=== PATIENT | male | born 1955 | race Caucasian/White ===

== ENCOUNTER 2019-11-06 12:49 | Inpatient (IN) | payer OTHER ==
--- NOTE | 2019-11-06 13:00 | ED ---
Respiratory - HPI Summary HPI Summary: This patient is a 64 year old male brought in by EMS presenting to [facility] with a chief complaint of hypoxia. He states he was being seen at a primary care for a general illness that started three days ago, that includes sore throat, fever, cough, diarrhea, dizziness, body aches, and laryngitis. He states there is gurgling in his lungs when he coughs/breathes, which he states is painful. He reports numbness/tingling in his right hand. He states less appetite. At his PCP , they noticed his SPO2 was 75% saturation. He was 80% on 2 L of oxygen at the office. The patient has a Hx of GERD. Medications reviewed, allergies noted. - History of Current Complaint Stated Complaint: GENERAL ILLNESS PER EMS Hx Obtained From: Patient Onset/Duration: Lasting Days Character: Dyspnea at Rest Associated Signs and Symptoms: SOB - Allergy/Home Medications Allergies/Adverse Reactions: Allergies Allergy/AdvReac Type Severity Reaction Status Date / Time bee venom protein (honey bee) Allergy Anaphylatic Verified 07/25/19 11:59 Shock celecoxib [From Celebrex] Allergy Unknown Verified 07/25/19 11:59 Reaction Details fenoprofen [From Nalfon] Allergy Unknown Verified 07/25/19 11:59 Reaction Details Home Medications: Home Medications Magic Mouth Was-KENNETH/MAAL/LIDO* 5 ml SWISH SPIT QID 11/06/19 [History Confirmed 11/06/19] PMH/Surg Hx/FS Hx/Imm Hx Endocrine/Hematology History: Denies: Hx Diabetes Cardiovascular History: Denies: Hx Hypertension, Hx Pacemaker/ICD History: Denies: Hx Renal Disease Sensory History: Denies: Hx Hearing Aid Psychiatric History: Denies: Hx Panic Disorder - Surgical History Surgery Procedure, Year, and Place: TONSILS AGE 6. CYSTS REMOVED FROM BACK AT DIFFERENT TIMES. DEVIATED SEPTUM REPAIRED 2011 - Immunization History Date of Tetanus Vaccine: Unk Date of Influenza Vaccine: Fall 2014 - Social History Alcohol Use: Rare Substance Use Type: Reports: None Smoking Status (MU): Never Smoked Tobacco Review of Systems Positive: Fever, Other - Body aches Positive: Sore Throat, Other - Laryngitis Positive: Cough, Other - Hypoxia Positive: Diarrhea Neurological/Mental Status: Other - Dizziness All Other Systems Reviewed And Are Negative: Yes Physical Exam - Summary Physical Exam Summary: Constitutional: Well-developed, Well-nourished, Alert. (-) Distressed Skin: Warm, Dry HENT: Normocephalic; Atraumatic Eyes: Conjunctiva normal Neck: Musculoskeletal ROM normal neck. (-) JVD, (-) Stridor, (-) Tracheal deviation Cardio: Rhythm regular, rate normal, Heart sounds normal; Intact distal pulses; The pedal pulses are 2+ and symmetric. Radial pulses are 2+ and symmetric. (-) Murmur Pulmonary/Chest wall: Wet sounding cough, decreased respiratory effort with crackles in the left lung field. 2+ pitting edema bilaterally. Abd: Soft, (-) tenderness, (-) Distension, (-) Guarding, (-) Rebound Musculoskeletal: (-) Edema Lymph: (-) Cervical adenopathy Neuro: Alert, Oriented x3 Psych: Mood and affect Normal Triage Information Reviewed: Yes Vital Signs Reviewed: Yes Procedures - Procedure Summary Procedure Summary: Patient was intubated. 20 mg of etomidate and 100 mg rocuronium was used. Patient was pre-oxygenated with oxygen mask and vapo-therm. 7.5 orotracheal tube was used, 23 at the lips. Glidescope was used, no complications during the procedure. - Sedation Patient Received Moderate/Deep Sedation with Procedure: No - Intubation Time of Intubation: 15:56 Intubation Method: orotracheal Tube Size (cm): 7.5 Breath Sounds after Intubation: equal Intubation Complications: no complications Post Intubation Xray: Yes Diagnostics - Laboratory Result Diagrams: 11/06/19 13:12 11/06/19 13:30 Lab Statement: Any lab studies that have been ordered have been reviewed, and results considered in the medical decision making process. - Radiology CXR Radiology Interpretation Completed By: Radiologist Summary of Radiographic Findings: IMPRESSION: RIGHT BASILAR INFILTRATE AND SMALL PLEURAL EFFUSION SUGGESTIVE OF PNEUMONIA. RECOMMEND FOLLOW-UP CHEST X- RAYS TO RESOLUTION. THIS REPORT WAS REVIEWED BY ED PHYSICIAN. POST-INTUBATION CXR Radiology Interpretation Completed By: Radiologist Summary of Radiographic Findings: FINDINGS: LINES AND TUBES: There has been interval placement of an endotracheal tube with the tip. overlying the trachea between the clavicles and the dina. IMPRESSION: LINES AND TUBES ABOVE. BIBASILAR ATELECTASIS VERSUS CONSOLIDATION WITH A. SMALL RIGHT PLEURAL EFFUSION. THIS REPORT WAS REVIEWED BY ED PHYSICIAN. - CT CT CHEST CT Interpretation Completed By: Radiologist Summary of CT Findings: CT CHEST IMPRESSION: Bilateral consolidation consistent with lobar pneumonia worse on the right. than on the left. THIS REPORT WAS REVIEWED BY ED PHYSICIAN. CT SOFT TISSUE NECK CT Interpretation Completed By: Radiologist Summary of CT Findings: SOFT TISSUE NECK CT IMPRESSION: No evidence of epiglottitis. THIS REPORT WAS REVIEWED BY ED PHYSICIAN. - EKG 1313 Cardiac Rate: Tachycardia - rate of 101 BPM EKG Rhythm: Sinus Tachycardia Summary of EKG Findings: EKG showed sinus tachycardia with rate of 101 BPM, EKG is difficult to interpret due to baseline wander. ED physician has reviewed and interpreted this EKG. Re-Evaluation - Re-Evaluation First Eval Re-Evaluation Time: 14:02 Comment: Patient's o2 saturation is in 90s while on vapotherm and oxygen mask. Second Eval Re-Evaluation Time: 15:31 Comment: Patient experienced desaturation of o2 to 60s. Repositioned vapotherm, patient was encouraged to breath in treatment. He improved to 90s. Third Eval Re-Evaluation Time: 15:44 Comment: Patient's o2 saturation slipped down to 80s, patient will be intubated. Disposition - Course Course Of Treatment: Patient is here with respiratory distress secondary to pneumonia. Patient is found be febrile and hypoxic at his primary care doctor' s office. Upon arrival here, patient was satting roughly 80% on 6 L nasal cannula. Patient was placed on Vapotherm anoxemia mask with little improvement in his saturation. Patient then had an albuterol treatment which helped his cough and increase his oxygen saturation to the mid 90s. Patient had an x-ray which showed a right middle lobe pneumonia. Patient is given Rocephin and azithromycin per the sepsis order set for community-acquired pneumonia. Patient was sent to receive a CT scan to rule out epiglottitis. When patient returned from CT scan, he was satting the 60s. Patient is placed back on Vapotherm and received another treatment. Patient only satted in the made 80s and the decision was made to intubate patient. Patient was successfully intubated and moved to the ICU. - Diagnoses Provider Diagnoses: Respiratory distress, RLL pneumonia, Hypoxia - Physician Notifications Discussed Care Of Patient With: Thom Owen MD Time Discussed With Above Provider: 14:31 Instructed by Provider To: Other - Patient's case was discussed with Dr. Peterson and Dr. Owen. Dr. Owen accepts for admission. CT chest and CT of neck, soft tissue to be obtained as well. - Critical Care Time Critical Care Time: 75-104 min - 80 minutes CCT Discharge ED - Sign-Out/Discharge Documenting (check all that apply): Patient Departure - admit - Discharge Plan Condition: Fair Disposition: ADMITTED TO [facility] - Billing Disposition and Condition Condition: FAIR Disposition: Admitted to [facility] - Attestation Statements Document Initiated by Ronniibe: Yes Documenting Scribe: Thom Hemphill Provider For Whom Denice is Documenting (Include Credential): Prasanna Hughes MD Scribe Attestation: Thom Henning, scribed for Prasanna Hughes MD on 11/06/19 at 1829. Scribe Documentation Reviewed: Yes Provider Attestation: The documentation as recorded by the ronniibjeane, Thom Hemphill accurately reflects the service I personally performed and the decisions made by Prasanna head MD Status of Scribe Document: Viewed
[2019-11-06] MEDS ORDERED: cefTRIAXone(*) 1 GM in NS 0.9% 50 ML* 50 ML IVPB ONE (13:05)
[2019-11-06] MEDS ORDERED: Azithromycin 500 mg/250 ml NS 500 MG/250 ML BAG IVPB ONE (13:05)
[2019-11-06] MEDS ORDERED: Albuterol 2.5 MG/3 ML NEB.SOL* (0.083%) INH ONE ×2 (13:13→15:23)
[2019-11-06] MEDS ORDERED: NS 0.9% 1000 ML** 1,000 ML IV ONE (13:25)
[2019-11-06 13:52] LABS: Hematocrit 40 % (42-52); Hemoglobin 13.5 g/dL (14.0-18.0); Mean Corpuscular HGB Conc 34 g/dL (31-36); Mean Corpuscular Hemoglobin 31 pg (27-31); Mean Corpuscular Volume 92 fL (80-94); Mean Platelet Volume 7.8 fL (7.4-10.4); Platelet Count 136 10^3/uL (150-450); Red Blood Count 4.33 10^6 /uL (4.18-5.48); Red Cell Distribution Width 14 % (10-15); White Blood Count 9.5 10^3/uL (3.5-10.8)
[2019-11-06 14:15] LABS: ABS Monocytes 0.6 10^3/ul (0-0.8); ABS Neutrophils 7.9 10^3/ul (1.5-7.7); Lymphocyte % 10.1 %
[2019-11-06 14:19] LABS: Albumin 4.1 g/dL (3.2-5.2); Albumin/Globulin Ratio 1.3 (1-3); BUN/Creatinine Ratio 24.2 (8-20); Calcium 8.7 mg/dL (8.6-10.3); EGFR African American 68.7 (>60); EGFR Non-African American 56.8 (>60); Globulin 3.1 g/dL (2-4); Potassium 3.3 mmol/L (3.5-5.0); Total Protein 7.2 g/dL (6.4-8.9)
[2019-11-06] MEDS ORDERED: Iodixanol* (CONTRAST) 320 MG/ML 100 ML SDV IV ONE (14:37)
[2019-11-06] MEDS ORDERED: Albuterol/Ipratropium NEB.SOL* Albuterol 2.5 MG/Ipratropium 0.5 MG 3 ML INH PRN (15:34)
[2019-11-06] MEDS ORDERED: Etomidate* 2 MG/ML 10 ML VIAL IV ONE (15:46)
[2019-11-06] MEDS ORDERED: Rocuronium* 10 MG/ML VIAL IV ONE (15:46)
[2019-11-06] MEDS ORDERED: Propofol* 100 ML IV ONE (15:54)
[2019-11-06 16:44] LABS: Influenza A Molecular POSITIVE (Negative)
[2019-11-06] MEDS ORDERED: Vancomycin per Pharmacy* NOTE FOLLOW UP SCH (17:00)
[2019-11-06] MEDS ORDERED: Vancomycin(*) 1,250 MG in NS 0.9% 250 ML* 250 ML IVPB ONE (17:00)
[2019-11-06] MEDS ORDERED: Acetaminophen ADULT LIQ* 650 MG/20.3 ML UDC NG TUBE ONE (17:10)
[2019-11-06 17:20] LABS: Urine Appearance Cloudy; Urine Bilirubin Negative (Negative); Urine Blood 2+ (Negative); Urine Color Yellow; Urine Glucose Negative (Negative); Urine Ketones Trace (Negative); Urine Nitrite Negative (Negative); Urine Protein 1+(30 mg/dL) (Negative); Urine Specific Gravity 1.025 (1.010-1.030); Urine Urobilinogen Negative (Negative)
[2019-11-06 17:22] LABS: Urine Bacteria Absent (Absent); Urine Red Blood Cell Trace(0-2/hpf) (Absent); Urine White Blood Cell Trace(0-5/hpf) (Absent)
[2019-11-06] MEDS ORDERED: LACTATED RINGERS IV SCH (18:15)
[2019-11-06] MEDS ORDERED: fentaNYL* 50 MCG/ML 2 ML VIAL (100 MCG VIAL) IV SLOW PU PRN ×2 (18:16→18:17)
--- NOTE | 2019-11-06 18:33 | HP ---
HISTORY AND PHYSICAL: DATE OF ADMISSION: 11/06/19 REQUESTING PHYSICIAN: Prasanna Hughes MD REASON FOR CONSULT: Acute hypoxic respiratory failure, limitations to history and physical as the patient has severe laryngitis and unable to speak at the moment. HISTORY OF PRESENT ILLNESS: This is a 64-year-old man who has a history of GERD , MARLEEN, hyperlipidemia, who presents with severe laryngitis and shortness of breath. The patient presented initially to his primary care's office for these symptoms earlier today. The symptoms have been going on for the past 3 days and had been getting progressively worse. He has been having difficulty swallowing and has a gurgling sound when he breathes in. The patient also reports a fever. No chest pain. He does have a cough, but he is unable to speak. He denies any pooling of secretions or drooling. The patient was at his PMDs and they found him to be hypoxic to approximately 75% on room air. He was referred to the ER after his oxygen only improved to 80% on 2 L. In the ER , the patient was markedly hypoxic and started on high flow nasal cannula. He was noted to have a fever of 102 and mildly elevated lactate. He was in acute renal failure and had 19% bands noted on his CBC. The patient was taken for CAT scan, which is pending and is being admitted to the ICU for high flow nasal cannula therapy, severe sepsis and pneumonia. ER Course: While in ER patient decompensated requiring intubation. PAST MEDICAL HISTORY: Hyperlipidemia, GERD, MARLEEN. PAST SURGICAL HISTORY: Tonsillectomy, sebaceous cyst removal, colonoscopy. MEDICATIONS: Home medications: 1. Diclofenac gel. 2. Omeprazole. 3. Magic mouthwash. Current medications: 1. Albuterol. 2. Azithromycin. 3. Heparin subcu. 4. Normal saline. 5. Protonix. 6. Ceftriaxone. ALLERGIES: BEE VENOM, CELECOXIB, FENOPROFEN. FAMILY HISTORY: GERD, IBS, Crohn's disease, liver cancer, COPD. SOCIAL HISTORY: He is never a smoker. No drugs or alcohol. TELEMETRY: Sinus tachycardia. INFUSIONS: Normal saline. REVIEW OF SYSTEMS: Negative except what is stated in the HPI above. The patient has difficulty speaking, he writes because of his laryngitis and he has been writing on a piece of paper and has a printed history that he brought in. PHYSICAL EXAMINATION GENERAL: Awake, alert, no acute distress. VITAL SIGNS: T-max of 103.8, heart rate 120, respiratory rate 30, O2 sat 86, BP 113/75, O2 of 100% high flow nasal cannula. HEENT: NC/AT. PERRL. NECK: No JVD. No thyromegaly. He does have an erythematous pharynx. PULMONARY: CTA, rhonchi, and decreased breath sounds at the bases. CARDIOVASCULAR: S1, S2 tachycardic. ABDOMEN: Soft, nontender. EXTREMITIES: No clubbing, cyanosis, or edema. NEURO: Awake, alert. Moving all extremities. No focal deficits. SKIN: Warm and intact. DIAGNOSTIC STUDIES/LAB DATA: Lab values: White count 9.5, hemoglobin 13.5, platelets 136. Blood gas, pH 7.48, pCO2 of 40, pO2 of 61, O2 sat 94%. Chemistry: Sodium 137, potassium 3.3, carbon dioxide 98, anion gap 10, BUN 31, creatinine 1.28, glucose 112, lactic acid 2.2, calcium 8.7. Total bilirubin 1.0 , AST 43, ALT 24, alk phos 39. Total protein 7.2, albumin 4.1. Imaging: Chest x-ray, right basilar infiltrate and small pleural effusion suggestive of pneumonia. CT chest, bilateral consolidation consistent with lobar pneumonia, worse on the right than the left. Neck CT pending. EKG, sinus tach. ASSESSMENT: This is a 64-year-old man with history of hyperlipidemia, gastroesophageal reflux disease, obstructive sleep apnea, who presents with shortness of breath, found to be in acute hypoxic respiratory failure secondary to community-acquired pneumonia, also with pharyngitis, acute renal failure, lactic acidosis. Septic shock. PLAN: 1. Neuro. Pain control. 2. Cardiovascular. Shock. 2/2 sepsis. iv hydration. levophed for bp support. check tte. 3. Respiratory. Acute hypoxic respiratory failure secondary to community- acquired pneumonia, possible aspiration pneumonia and possible MRSA pneumonia. We will treat with broad-spectrum antibiotics. Nebulizers. Chest PT, flutter valve. Wean oxygen as tolerated. 4. ID. Severe sepsis with shock secondary to pneumonia and influenza.. Check blood cultures. Check urine legionella, pneumococcal antigen. Vanco/ ceftriaxone/azithro. IV hydration. serial lactates. sepsis protocol. 5. GI. N.p.o. and swallow eval to rule out aspiration. PPI for GERD. 6. Renal. Acute renal failure secondary to dehydration and sepsis. IV hydration. Monitor electrolytes. 7. Heme. Monitor CBC. 8. Endocrine. Monitor fingersticks. 9. Musculoskeletal: Pressure ulcer prophylaxis, bedrest. Wounds none. 10. Nutrition, n.p.o. 11. DVT prophylaxis. Heparin subcu. 12. GI prophylaxis. PPI. 13. Central line. None. 14. Arterial line. None. 15. Sharpe catheter. None. DISPOSITION: Admit to the ICU. EXPECTED LENGTH OF STAY: Greater than 2 midnights. The patient requires ICU for severe sepsis with shock on vasopressors and mechanical ventilator support. The patient's clinical status is critical CODE STATUS: Full. TOTAL CRITICAL CARE TIME: 45 minutes. [id number]/CPS #: [id number] MTDD
[2019-11-06] MEDS ORDERED: Norepinephrine 16MCG/ML IVPRE* 4,000 MCG/250 ML BAG IV SCH (19:00)
[2019-11-06] MEDS ORDERED: Propofol* 100 ML IV SCH (19:00)
[2019-11-06] MEDS: Chlorhexidine MOUTHWASH 0.12%* 15 ML UDC SWISH SPIT SCH ×2 (19:38→21:17)
[2019-11-06] MEDS ORDERED: Lactated Ringers 1000 ML Bag* 1,000 ML IV SCH (20:15)
[2019-11-06] MEDS: Pantoprazole IV* 40 MG IV SCH (20:41)
[2019-11-06 21:12] LABS: Rapid Strep Molecular Negative (Negative)
[2019-11-06] MEDS: Heparin VIAL(*) 5000 UNITS/ML VIAL (FIVE THOUSAND) SUBCUT SCH (21:17)
[2019-11-06] MEDS: Oseltamivir SUSP* ORALSYR 6 MG/ML PO SCH (21:24)
[2019-11-06 21:52] LABS: BUN/Creatinine Ratio 19.6 (8-20); Calcium 7.3 mg/dL (8.6-10.3); EGFR African American 89.3 (>60); EGFR Non-African American 73.8 (>60); Magnesium 1.3 mg/dL (1.9-2.7); Potassium 3.5 mmol/L (3.5-5.0)
[2019-11-07] MEDS: Chlorhexidine MOUTHWASH 0.12%* 15 ML UDC SWISH SPIT SCH ×6 (02:20→22:47)
[2019-11-07] MEDS ORDERED: NS 0.9% 1000 ML** 2,000 ML IV ONE (03:20)
[2019-11-07] MEDS ORDERED: Propofol* 100 ML ONE (03:30)
[2019-11-07] MEDS: Propofol* 100 ML IV SCH ×4 (04:55→22:47)
[2019-11-07] MEDS: Vancomycin(*) 1,250 MG in NS 0.9% 250 ML* 250 ML IVPB SCH ×2 (05:34→18:15)
[2019-11-07 05:52] LABS: ABS Lymphocytes 0.8 10^3/ul (1.0-4.8); ABS Monocytes 0.4 10^3/ul (0-0.8); ABS Neutrophils 4.5 10^3/ul (1.5-7.7); Hematocrit 32 % (42-52); Hemoglobin 10.8 g/dL (14.0-18.0); Lymphocyte % 13.5 %; Mean Corpuscular HGB Conc 34 g/dL (31-36); Mean Corpuscular Hemoglobin 31 pg (27-31); Mean Corpuscular Volume 92 fL (80-94); Mean Platelet Volume 7.9 fL (7.4-10.4); Platelet Count 100 10^3/uL (150-450); Red Blood Count 3.45 10^6 /uL (4.18-5.48); Red Cell Distribution Width 14 % (10-15); White Blood Count 5.7 10^3/uL (3.5-10.8)
[2019-11-07 06:07] LABS: Activated Partial Thrombo Time 40.9 seconds (26.0-38.0); Albumin 2.7 g/dL (3.2-5.2); Albumin/Globulin Ratio 1.1 (1-3); BUN/Creatinine Ratio 17.6 (8-20); Calcium 6.9 mg/dL (8.6-10.3); EGFR African American 110.2 (>60); Globulin 2.4 g/dL (2-4); INR 1.22 (0.82-1.09); Magnesium 1.4 mg/dL (1.9-2.7); Phosphorus 1.7 mg/dL (2.5-5.0); Potassium 3.6 mmol/L (3.5-5.0); Total Bilirubin 0.9 mg/dL (0.2-1.0); Total Protein 5.1 g/dL (6.4-8.9)
--- NOTE | 2019-11-07 07:19 | OP ---
Operative Report - Blank - Operative Report Date of Operation: 11/07/19 Note: Central Line Procedure Note Indication: hypotension Diagnosis: septic shock Performed by: Alden Consent: Emergent Woodruff Protocol: Time-out was performed and the correct patient and site were verified - Prior labs/history was reviewed prior to procedure - Full sterile precautions with chlorhexidine/full drapes/gowns/gloves utilized - Left visualized with ultrasound - Vessel accessed under ultrasound guidance with return of nonpulsatile blood. A guidewire was passed into vessel and confirmed in vessel with ultrasound. 1 attempt was made to access vessel. Vessel was dilated and cathetor was passed over wire into vessel. All ports demonstrated good blood return and flushed. Catheter was sutured to site and dressing applied. Adequate hemostasis was achieved EBL 0 cc No immediate complications noted, patient tolerated procedure well. Post Procedure CXR: Pending
[2019-11-07] MEDS ORDERED: Magnesium Sulfate 2 GM IV* 2 GM/50 ML BAG IVPB ONE (07:35)
--- NOTE | 2019-11-07 07:49 | PN ---
Progress Note - Progress Note Date of Service: 11/07/19 Note: Progress Note -- Critical Care 24 hour events/significant events: Patient had TLC placed. Weaning vent down to 70% Fio2. Remains borderline hypotensive. Renal function improved. Lactate now negative. ROS: ROS unable to be obtained secondary to intubated/sedated/unresponsive Tele: NSR Vitals: Vital Signs: Temp Pulse Resp BP Pulse Ox 100.2 F 76 14 93/64 99 11/07/19 06:00 11/07/19 06:00 11/07/19 06:00 11/07/19 06:00 11/07/19 06:00 O2/Vent: RR 14. Fio2 60% TV 450. PEEP 10. CMV. Infusions: LR @100 Medications: Acetaminophen (Tylenol Adult Liq*) 650 mg PO Q4H PRN PRN Reason: MILD PAIN or TEMP > 100.4 Albuterol/Ipratropium (Duoneb (Albuterol 2.5 Mg/Ipratropium 0.5 Mg)) 1 neb INH Q4H PRN PRN Reason: SOB/WHEEZING Chlorhexidine Gluconate (Peridex Mouth Wash 0.12%*) 15 ml SWISH SPIT Q4HR [facility] Last Admin: 11/07/19 05:34 Dose: 15 ml Fentanyl Citrate (Fentanyl*) 25 mcg IV SLOW PU Q1H PRN PRN Reason: moderate pain or sedation Fentanyl Citrate (Fentanyl*) 50 mcg IV SLOW PU Q1H PRN PRN Reason: severe pain or sedation Heparin Sodium (Porcine) (Heparin Vial(*)) 5,000 units SUBCUT Q12HR [facility] Last Admin: 11/06/19 21:17 Dose: 5,000 units Azithromycin (Zithromax 500 Mg/250 Ml) 500 mg in 250 mls @ 250 mls/hr IVPB Q24H [facility] Stop: 11/10/19 15:59 Ceftriaxone Sodium 1 gm/ (Sodium Chloride) 50 mls @ 100 mls/hr IVPB Q24H [facility] Stop: 11/14/19 15:33 Norepinephrine Bitartrate (Levophed 16 Mcg/Ml Premix*) 4,000 mcg in 250 mls @ 18.75 mls/hr IV .INITIAL RATE [facility]; Protocol Lactated Ringer's (Lactated Ringers 1000 Ml Bag*) 1,000 mls @ 100 mls/hr IV PER RATE [facility] Vancomycin HCl 1,250 mg/ (Sodium Chloride) 250 mls @ 166.667 mls/hr IVPB Q12H [facility] Last Admin: 11/07/19 05:34 Dose: 166.667 mls/hr Propofol (Diprivan*) 100 mls @ 8.709 mls/hr IV .PER PROTOCOL [facility]; Protocol Last Admin: 11/07/19 04:55 Dose: 8.709 mls/hr Oseltamivir Phosphate (Tamiflu Susp* Oralsyr) 75 mg PO BID [facility] Last Admin: 11/06/19 21:24 Dose: 75 mg Pantoprazole Sodium (Protonix Iv*) 40 mg IV Q24H [facility] Last Admin: 11/06/19 20:41 Dose: Not Given Pharmacy Consult (Vancomycin Per Pharmacy*) 1 note FOLLOW UP .VANC PER PHARMACY [facility]; Protocol Pharmacy Profile Note (Vancomycin Trough Check) 1 note FOLLOW UP 0600 ONE Stop: 11/08/19 06:01 Physical Exam: Constitutional: Intubated/sedated Head: normocephalic, atraumatic Eyes: no pallor, no icterus ENT: moist mucous membranes Neck: soft, supple, no jvd, no stridor CVS: normal rate, regular, no murmur Chest/Resp: bilateral air entry, +ronchi. Abdomen/GI: soft, nontender, nondistended, BS+ Ext/Msk: warm, pulses+, b/l LE pedal edema Skin: intact, warm Neuro: awake, alert, orientedx3, moving all extremities, no gross focal deficit Psych: normal affect Labs: Laboratory Results - last 24 hr 11/06/19 11/06/19 11/06/19 13:12 13:30 13:30 WBC 9.5 RBC 4.33 Hgb 13.5 L Hct 40 L MCV 92 MCH 31 MCHC 34 RDW 14 Plt Count 136 L MPV 7.8 Neut % (Auto) 83.6 Lymph % (Auto) 10.1 [place] % (Auto) 6.2 Eos % (Auto) 0.0 Baso % (Auto) 0.1 Absolute Neuts (auto) 7.9 H Absolute Lymphs (auto) 1.0 Absolute Monos (auto) 0.6 Absolute Eos (auto) 0.0 Absolute Basos (auto) 0.0 Absolute Nucleated RBC 0.0 Immature Gran % 19.0 H Neutrophils % 62.0 Band Neutrophils % 19.0 H Lymphocytes % 14.0 Monocytes % 5.0 Nucleated RBC % 0.0 Normal RBC Morphology Normal INR (Anticoag Therapy) APTT Patient Temperature ABG pH ABG pH (Temp Correct) ABG pCO2 ABG pCO2 (Temp Corrct ABG pO2 ABG pO2 (Temp Correct ABG HCO3 ABG O2 Saturation ABG Base Excess Respiration Rate O2 Delivery Device Ventilator Type Vent Mode FiO2 Inspiratory Time PEEP Pressure Support Pressure Control EPAP IPAP BiPAP Sodium 137 Potassium 3.3 L Chloride 98 L Carbon Dioxide 29 Anion Gap 10 BUN 31 H Creatinine 1.28 H Est GFR ( Amer) 68.7 Est GFR (Non-Af Amer) 56.8 BUN/Creatinine Ratio 24.2 H Glucose 112 H Lactic Acid 2.2 H* Calcium 8.7 Phosphorus Magnesium Total Bilirubin 1.00 AST 43 H ALT 24 Alkaline Phosphatase 39 B-Natriuretic Peptide Total Protein 7.2 Albumin 4.1 Globulin 3.1 Albumin/Globulin Ratio 1.3 Urine Color Urine Appearance Urine pH Ur Specific [place] Urine Protein Urine Ketones Urine Blood Urine Nitrate Urine Bilirubin Urine Urobilinogen Ur Leukocyte Esterase Urine WBC (Auto) Urine RBC (Auto) Urine Bacteria Urine Glucose Influenza A (Rapid) Influenza B (Rapid) Group A Strep Rapid 11/06/19 11/06/19 11/06/19 13:30 13:40 16:30 WBC RBC Hgb Hct MCV MCH MCHC RDW Plt Count MPV Neut % (Auto) Lymph % (Auto) [place] % (Auto) Eos % (Auto) Baso % (Auto) Absolute Neuts (auto) Absolute Lymphs (auto) Absolute Monos (auto) Absolute Eos (auto) Absolute Basos (auto) Absolute Nucleated RBC Immature Gran % Neutrophils % Band Neutrophils % Lymphocytes % Monocytes % Nucleated RBC % Normal RBC Morphology INR (Anticoag Therapy) APTT Patient Temperature Not Reportable ABG pH 7.48 H ABG pH (Temp Correct) Not Reportable ABG pCO2 40 ABG pCO2 (Temp Corrct Not Reportable ABG pO2 61 L ABG pO2 (Temp Correct Not Reportable ABG HCO3 29.3 ABG O2 Saturation 94.5 ABG Base Excess 5.8 H Respiration Rate Not Reportable O2 Delivery Device vapotherm Ventilator Type Not Reportable Vent Mode Not Reportable FiO2 100 Inspiratory Time Not Reportable PEEP Not Reportable Pressure Support Not Reportable Pressure Control Not Reportable EPAP Not Reportable IPAP Not Reportable BiPAP Not Reportable Sodium Potassium Chloride Carbon Dioxide Anion Gap BUN Creatinine Est GFR ( Amer) Est GFR (Non-Af Amer) BUN/Creatinine Ratio Glucose Lactic Acid Calcium Phosphorus Magnesium Total Bilirubin AST ALT Alkaline Phosphatase B-Natriuretic Peptide 50 Total Protein Albumin Globulin Albumin/Globulin Ratio Urine Color Urine Appearance Urine pH Ur Specific [place] Urine Protein Urine Ketones Urine Blood Urine Nitrate Urine Bilirubin Urine Urobilinogen Ur Leukocyte Esterase Urine WBC (Auto) Urine RBC (Auto) Urine Bacteria Urine Glucose Influenza A (Rapid) Positive H Influenza B (Rapid) Not Reportable Group A Strep Rapid 11/06/19 11/06/19 11/06/19 16:45 18:07 20:54 WBC RBC Hgb Hct MCV MCH MCHC RDW Plt Count MPV Neut % (Auto) Lymph % (Auto) [place] % (Auto) Eos % (Auto) Baso % (Auto) Absolute Neuts (auto) Absolute Lymphs (auto) Absolute Monos (auto) Absolute Eos (auto) Absolute Basos (auto) Absolute Nucleated RBC Immature Gran % Neutrophils % Band Neutrophils % Lymphocytes % Monocytes % Nucleated RBC % Normal RBC Morphology INR (Anticoag Therapy) APTT Patient Temperature ABG pH ABG pH (Temp Correct) ABG pCO2 ABG pCO2 (Temp Corrct ABG pO2 ABG pO2 (Temp Correct ABG HCO3 ABG O2 Saturation ABG Base Excess Respiration Rate O2 Delivery Device Ventilator Type Vent Mode FiO2 Inspiratory Time PEEP Pressure Support Pressure Control EPAP IPAP BiPAP Sodium 138 Potassium 3.5 Chloride 104 Carbon Dioxide 28 Anion Gap 6 BUN 20 Creatinine 1.02 Est GFR ( Amer) 89.3 Est GFR (Non-Af Amer) 73.8 BUN/Creatinine Ratio 19.6 Glucose 129 H Lactic Acid Calcium 7.3 L Phosphorus Magnesium 1.3 L Total Bilirubin AST ALT Alkaline Phosphatase B-Natriuretic Peptide Total Protein Albumin Globulin Albumin/Globulin Ratio Urine Color Yellow Urine Appearance Cloudy Urine pH 5.0 Ur Specific [place] 1.025 Urine Protein 1+(30 mg/dl) A Urine Ketones Trace A Urine Blood 2+ A Urine Nitrate Negative Urine Bilirubin Negative Urine Urobilinogen Negative Ur Leukocyte Esterase Negative Urine WBC (Auto) Trace(0-5/hpf) Urine RBC (Auto) Trace(0-2/hpf) Urine Bacteria Absent Urine Glucose Negative Influenza A (Rapid) Influenza B (Rapid) Group A Strep Rapid Negative 11/06/19 11/07/19 11/07/19 20:54 02:40 05:30 WBC RBC Hgb Hct MCV MCH MCHC RDW Plt Count MPV Neut % (Auto) Lymph % (Auto) [place] % (Auto) Eos % (Auto) Baso % (Auto) Absolute Neuts (auto) Absolute Lymphs (auto) Absolute Monos (auto) Absolute Eos (auto) Absolute Basos (auto) Absolute Nucleated RBC Immature Gran % Neutrophils % Band Neutrophils % Lymphocytes % Monocytes % Nucleated RBC % Normal RBC Morphology INR (Anticoag Therapy) APTT Patient Temperature ABG pH ABG pH (Temp Correct) ABG pCO2 ABG pCO2 (Temp Corrct ABG pO2 ABG pO2 (Temp Correct ABG HCO3 ABG O2 Saturation ABG Base Excess Respiration Rate O2 Delivery Device Ventilator Type Vent Mode FiO2 Inspiratory Time PEEP Pressure Support Pressure Control EPAP IPAP BiPAP Sodium Potassium Chloride Carbon Dioxide Anion Gap BUN Creatinine Est GFR ( Amer) Est GFR (Non-Af Amer) BUN/Creatinine Ratio Glucose Lactic Acid 1.3 1.1 1.0 Calcium Phosphorus Magnesium Total Bilirubin AST ALT Alkaline Phosphatase B-Natriuretic Peptide Total Protein Albumin Globulin Albumin/Globulin Ratio Urine Color Urine Appearance Urine pH Ur Specific [place] Urine Protein Urine Ketones Urine Blood Urine Nitrate Urine Bilirubin Urine Urobilinogen Ur Leukocyte Esterase Urine WBC (Auto) Urine RBC (Auto) Urine Bacteria Urine Glucose Influenza A (Rapid) Influenza B (Rapid) Group A Strep Rapid 11/07/19 11/07/19 11/07/19 05:30 05:30 05:30 WBC 5.7 RBC 3.45 L Hgb 10.8 L Hct 32 L MCV 92 MCH 31 MCHC 34 RDW 14 Plt Count 100 L MPV 7.9 Neut % (Auto) 79.4 Lymph % (Auto) 13.5 [place] % (Auto) 6.9 Eos % (Auto) 0.0 Baso % (Auto) 0.2 Absolute Neuts (auto) 4.5 Absolute Lymphs (auto) 0.8 L Absolute Monos (auto) 0.4 Absolute Eos (auto) 0.0 Absolute Basos (auto) 0.0 Absolute Nucleated RBC 0.0 Immature Gran % Neutrophils % Band Neutrophils % Lymphocytes % Monocytes % Nucleated RBC % 0.0 Normal RBC Morphology INR (Anticoag Therapy) 1.22 H APTT 40.9 H Patient Temperature ABG pH ABG pH (Temp Correct) ABG pCO2 ABG pCO2 (Temp Corrct ABG pO2 ABG pO2 (Temp Correct ABG HCO3 ABG O2 Saturation ABG Base Excess Respiration Rate O2 Delivery Device Ventilator Type Vent Mode FiO2 Inspiratory Time PEEP Pressure Support Pressure Control EPAP IPAP BiPAP Sodium 139 Potassium 3.6 Chloride 107 Carbon Dioxide 28 Anion Gap 4 BUN 15 Creatinine 0.85 Est GFR ( Amer) 110.2 Est GFR (Non-Af Amer) 91.0 BUN/Creatinine Ratio 17.6 Glucose 117 H Lactic Acid Calcium 6.9 L Phosphorus 1.7 L Magnesium 1.4 L Total Bilirubin 0.90 AST 44 H ALT 20 Alkaline Phosphatase 34 B-Natriuretic Peptide Total Protein 5.1 L Albumin 2.7 L Globulin 2.4 Albumin/Globulin Ratio 1.1 Urine Color Urine Appearance Urine pH Ur Specific [place] Urine Protein Urine Ketones Urine Blood Urine Nitrate Urine Bilirubin Urine Urobilinogen Ur Leukocyte Esterase Urine WBC (Auto) Urine RBC (Auto) Urine Bacteria Urine Glucose Influenza A (Rapid) Influenza B (Rapid) Group A Strep Rapid Imaging: Neck CT 11/06/19 IMPRESSION: No evidence of epiglottitis. CT Chest 11/06/19 IMPRESSION: Bilateral consolidation consistent with lobar pneumonia worse on the right than on the left. CXR 11/06/19 IMPRESSION: RIGHT BASILAR INFILTRATE AND SMALL PLEURAL EFFUSION SUGGESTIVE OF PNEUMONIA. RECOMMEND FOLLOW-UP CHEST X-RAYS TO RESOLUTION. CXR 11/06/19 IMPRESSION: LINES AND TUBES ABOVE. BIBASILAR ATELECTASIS VERSUS CONSOLIDATION WITH A SMALL RIGHT PLEURAL EFFUSION. Assessment: 64M with hld, gerd, zeenat, presents with acute hypoxic respiratory failure 2/2 Influenza A and concomittent pneumonia. Septic shock. Acute renal failure. Plan: Neuro- -Delirium prec; avoid BDZ CVS- shock - 2/2 sepsis - iv hydration - levophed fo bp support - check tte Resp- acute hypoxic respiratory failure - 2/2 Flu A and pneumonia - wean vent as tolerated - VAP bundle - nebs prn ID- septic shock - 2/2 Flu/Pneumonia - possible staph pneumonia given Flu positive - vanco/ceftriaxone/azithro/tamiflu - f/u cultures - iv hydration - lactate now normal - sepsis protocol GI- start tube feeds -GI prophylaxis Renal- acute renal failure - 2/2 sepsis/dehydration - improving - replete potassium/mag/phos - monitor i/o - monitor lytes Heme- monitor cbc Endo-Maintain BG<200, insulin protocol as needed Musculsk- pressure ulcer prophylaxis. Bedrest. Wounds- none Nutrition- tube feeds DVT prophylaxis: hsq GI prophylaxis: ppi Central Line: [facility] (11/06/19) Arterial Line: none Sharpe Cathetor: (11/06/19) Disposition: Patient requires Critical Care/ICU for respiratory failure requiring mechanical ventilation. Vasopressor support. Patient clinical status: Critical Code Status:Full
[2019-11-07] MEDS ORDERED: Potassium Phosphate IV* 15 MMOLE in NS 0.9% 250 ML* 250 ML IVPB ONE (08:00)
[2019-11-07] MEDS: Oseltamivir SUSP* ORALSYR 6 MG/ML PO SCH ×2 (08:54→20:18)
[2019-11-07] MEDS: Heparin VIAL(*) 5000 UNITS/ML VIAL (FIVE THOUSAND) SUBCUT SCH ×2 (08:54→20:18)
--- NOTE | 2019-11-07 09:36 | ECHO ---
*[facility]* [place] [address] Fax #: [phone] Transthoracic Echocardiogram Patient: Uriel Goldberg : 1955 Study Date: 11/07/2019 Age: 64 Gender: M HR: 75 bpm Height: 70 in /177.8 cm BSA: 1.94 m^2 Weight: 166.1 lb /75.5 kg BMI: 23.9 kg/m^2 *Commissary Officer: * Wilda Mario [facility] *Referring Physician: * Calos Ruano *Reading Physician: * Musa Dubois MD Indications: Congestive Heart Failure. SOB. History: Functional status: Obstructive sleep apnea. Risk factors: Dyslipidemia. Conclusions Summary: - Left ventricle: The cavity size is normal. Wall thickness is mildly increased. Systolic function is normal. The estimated ejection fraction is 55-60%. Wall motion is normal; there are no regional wall motion abnormalities. - Right ventricle: The cavity size is mildly to moderately dilated. Systolic function is mildly reduced. - Left atrium: The atrium is at the upper limits of normal in size. - Tricuspid valve: There is trace regurgitation. - Pulmonary arteries: Systolic pressure can not be accurately estimated. Recommendations: None prior for comparison at time of interpretation Study data: Transthoracic echocardiogram. Procedure: Transthoracic echocardiography was performed. Image quality was fair. The study was technically limited due to Patient on ventilator. Complete 2D, spectral Doppler, and color flow Doppler. Location: ICU Patient status: Inpatient. Patient room number: ICU-03. Rhythm: Normal sinus rhythm. Findings Left ventricle: The cavity size is normal. Wall thickness is mildly increased. Systolic function is normal. The estimated ejection fraction is 55-60%. Wall motion is normal; there are no regional wall motion abnormalities. There is no consistent Doppler evidence of clinically significant diastolic dysfunction. Right ventricle: The cavity size is mildly to moderately dilated. Systolic function is mildly reduced. Left atrium: The atrium is at the upper limits of normal in size. Right atrium: The atrium is normal in size. Mitral valve: The leaflets are mildly thickened. There is no evidence of stenosis. There is trace regurgitation. Aortic valve: The valve is trileaflet. The leaflets are mildly thickened. There is no evidence of stenosis. There is trace regurgitation. Tricuspid valve: The leaflets are normal thickness. There is no evidence of stenosis. There is trace regurgitation. Pulmonic valve: The leaflets are normal thickness. There is no evidence of stenosis. There is trace regurgitation. Aorta: Aortic root: The aortic root is appears normal. Ascending aorta: The ascending aorta is appears normal. Aortic arch: The aortic arch is appears normal. Pericardium: There is no significant pericardial effusion. Pulmonary arteries: Not well visualized. Systolic pressure can not be accurately estimated. Systemic veins: Inferior vena cava: The vessel is dilated. Measurements Left ventricle Value Ref Aortic valve continued Value Ref ZOE, LAX (L) 3.7 cm 4.2 - 5.8 Rene diam/bsa, S 1.2 cm/m^2 1.1 - ESD, LAX 2.6 cm 2.5 - 4.0 1.5 FS, LAX 29 % 25 - 43 Peak v, S 0.9 m/sec ------- PW, ED, LAX (H) 1.1 cm 0.6 - 1.0 VTI, S 18.0 cm ------- E', lat rene, TDI 13.0 cm/sec >=10.0 Mean grad, S 2.0 mm Hg ------- E/e', lat rene, TDI 5 --------- Peak grad, S 3.0 mm Hg --- ---- E', med rene, TDI 10.0 cm/sec >=7.0 LVOT/AV, VTI ratio 0.61 ------- E/e', med rene, TDI 6 --------- E', avg, TDI 11.5 cm/sec --------- Mitral valve Value Ref E/e', avg, TDI 5 <=14 Peak E 0.6 m/sec ------- Peak A 0.5 m/sec ------- LVOT Value Ref Decel time 127 ms ------- Peak bela, S 0.6 m/sec --------- Peak grad, D 1.0 mm Hg ------- VTI, S 11.0 cm --------- Peak E/A ratio 1.2 ------- Mean grad, S 1 mm Hg --------- Pulmonic valve Value Ref Right ventricle Value Ref Peak v, S 0.8 m/sec ------- ZOE, LAX 3.9 cm --------- Peak grad, S 3.0 mm Hg ------- ZOE minor ax, A4C mid (H) 3.7 cm 1.9 - 3.5 Aortic root Value Ref Left atrium Value Ref Root diam 3.0 cm <4.1 ML dim, A4C 5.0 cm --------- SI dim, A4C 4.5 cm --------- Ascending aorta Value Ref Vol/bsa, ES, A/L 33 ml/m^2 16 - 34 AAo diam 3.1 cm 2.2 - 3.8 Right atrium Value Ref RA ID, major 4.8 cm --------- Aortic arch Value Ref RA ID, minor 3.8 cm --------- Arch diam 2.2 cm ------- Estimated RAP 15 mm Hg --------- Decending aorta Value Ref Aortic valve Value Ref Maddy peak bela 0.6 m/sec ------- Rene diam, S 2.3 cm 2.0 - 3.2 Inferior vena cava Value Ref Diam 2.8 cm ------- Legend: (L) and (H) lakesha values outside specified reference range. Prepared and electronically signed by Musa Dubois MD 11/07/2019 09:35
[2019-11-07] MEDS: Acetaminophen ADULT LIQ* 650 MG/20.3 ML UDC PO PRN ×2 (12:40→18:15)
[2019-11-07] MEDS: cefTRIAXone(*) 1 GM in NS 0.9% 50 ML* 50 ML IVPB SCH (14:40)
[2019-11-07] MEDS: Pantoprazole IV* 40 MG IV SCH (14:40)
[2019-11-07] MEDS: Azithromycin 500 mg/250 ml NS 500 MG/250 ML BAG IVPB SCH (16:25)
[2019-11-08] MEDS: Chlorhexidine MOUTHWASH 0.12%* 15 ML UDC SWISH SPIT SCH ×3 (02:08→08:41)
[2019-11-08] MEDS: Propofol* 100 ML IV SCH ×2 (04:45→08:46)
[2019-11-08 05:24] LABS: ABS Lymphocytes 0.9 10^3/ul (1.0-4.8); ABS Monocytes 0.6 10^3/ul (0-0.8); ABS Neutrophils 4.9 10^3/ul (1.5-7.7); Eosinophil % 0.1 %; Hematocrit 32 % (42-52); Hemoglobin 10.7 g/dL (14.0-18.0); Mean Corpuscular HGB Conc 34 g/dL (31-36); Mean Corpuscular Hemoglobin 31 pg (27-31); Mean Corpuscular Volume 93 fL (80-94); Mean Platelet Volume 7.9 fL (7.4-10.4); Platelet Count 116 10^3/uL (150-450); Red Blood Count 3.41 10^6 /uL (4.18-5.48); Red Cell Distribution Width 15 % (10-15); White Blood Count 6.3 10^3/uL (3.5-10.8)
[2019-11-08 05:40] LABS: BUN/Creatinine Ratio 15.4 (8-20); Calcium 7.3 mg/dL (8.6-10.3); EGFR African American 101.8 (>60); EGFR Non-African American 84.1 (>60); Magnesium 2.1 mg/dL (1.9-2.7); Phosphorus 1.7 mg/dL (2.5-5.0); Potassium 3.4 mmol/L (3.5-5.0)
[2019-11-08] MEDS ORDERED: Vancomycin Trough Check NOTE FOLLOW UP ONE (06:00)
[2019-11-08] MEDS: Vancomycin(*) 1,250 MG in NS 0.9% 250 ML* 250 ML IVPB SCH (06:10)
[2019-11-08] MEDS: Heparin VIAL(*) 5000 UNITS/ML VIAL (FIVE THOUSAND) SUBCUT SCH ×2 (07:47→20:38)
[2019-11-08] MEDS: Oseltamivir SUSP* ORALSYR 6 MG/ML PO SCH (07:47)
--- NOTE | 2019-11-08 07:48 | PN ---
Progress Note - Progress Note Date of Service: 11/08/19 Note: Progress Note -- Critical Care 24 hour events/significant events: Weaning o2. Down to 45%. PEEP 5. TTE with normal EF. Mild RV dysfunction. ROS: ROS unable to be obtained secondary to intubated/sedated/unresponsive Tele: NSR Vitals: Vital Signs: Temp Pulse Resp BP Pulse Ox 99.9 F 66 16 92/59 96 11/08/19 07:15 11/08/19 07:15 11/08/19 07:00 11/08/19 07:15 11/08/19 07:15 O2/Vent: CMV. TV 450. Fio2 45%. PEEP 5 Infusions: Propofol Levophed Medications: Acetaminophen (Tylenol Adult Liq*) 650 mg PO Q4H PRN PRN Reason: MILD PAIN or TEMP > 100.4 Last Admin: 11/07/19 18:15 Dose: 650 mg Albuterol/Ipratropium (Duoneb (Albuterol 2.5 Mg/Ipratropium 0.5 Mg)) 1 neb INH Q4H PRN PRN Reason: SOB/WHEEZING Chlorhexidine Gluconate (Peridex Mouth Wash 0.12%*) 15 ml SWISH SPIT Q4HR [facility] Last Admin: 11/08/19 06:10 Dose: 15 ml Fentanyl Citrate (Fentanyl*) 25 mcg IV SLOW PU Q1H PRN PRN Reason: moderate pain or sedation Fentanyl Citrate (Fentanyl*) 50 mcg IV SLOW PU Q1H PRN PRN Reason: severe pain or sedation Heparin Sodium (Porcine) (Heparin Vial(*)) 5,000 units SUBCUT Q12HR [facility] Last Admin: 11/07/19 20:18 Dose: 5,000 units Azithromycin (Zithromax 500 Mg/250 Ml) 500 mg in 250 mls @ 250 mls/hr IVPB Q24H [facility] Stop: 11/10/19 15:59 Last Admin: 11/07/19 16:25 Dose: 250 mls/hr Ceftriaxone Sodium 1 gm/ (Sodium Chloride) 50 mls @ 100 mls/hr IVPB Q24H [facility] Stop: 11/14/19 15:33 Last Admin: 11/07/19 14:40 Dose: 100 mls/hr Norepinephrine Bitartrate (Levophed 16 Mcg/Ml Premix*) 4,000 mcg in 250 mls @ 18.75 mls/hr IV .INITIAL RATE [facility]; Protocol Vancomycin HCl 1,250 mg/ (Sodium Chloride) 250 mls @ 166.667 mls/hr IVPB Q12H [facility] Last Admin: 11/08/19 06:10 Dose: 166.667 mls/hr Propofol (Diprivan*) 100 mls @ 8.709 mls/hr IV .PER PROTOCOL [facility]; Protocol Last Admin: 11/08/19 04:45 Dose: 17.5 mls/hr Oseltamivir Phosphate (Tamiflu Susp* Oralsyr) 75 mg PO BID [facility] Last Admin: 11/07/19 20:18 Dose: 75 mg Pantoprazole Sodium (Protonix Iv*) 40 mg IV Q24H [facility] Last Admin: 11/07/19 14:40 Dose: 40 mg Pharmacy Consult (Vancomycin Per Pharmacy*) 1 note FOLLOW UP .VANC PER PHARMACY [facility]; Protocol Physical Exam: Constitutional: Intubated/sedated Head: normocephalic, atraumatic Eyes: no pallor, no icterus ENT: moist mucous membranes Neck: soft, supple, no jvd, no stridor CVS: normal rate, regular, no murmur Chest/Resp: bilateral air entry, +ronchi. Abdomen/GI: soft, nontender, nondistended, BS+ Ext/Msk: warm, pulses+, b/l LE pedal edema Skin: intact, warm Neuro: awake, alert, orientedx3, moving all extremities, no gross focal deficit Psych: normal affect Labs: Laboratory Results - last 24 hr 11/08/19 11/08/19 11/08/19 05:15 05:15 05:15 WBC 6.3 RBC 3.41 L Hgb 10.7 L Hct 32 L MCV 93 MCH 31 MCHC 34 RDW 15 Plt Count 116 L MPV 7.9 Neut % (Auto) 77.0 Lymph % (Auto) 14.0 [place] % (Auto) 8.8 Eos % (Auto) 0.1 Baso % (Auto) 0.1 Absolute Neuts (auto) 4.9 Absolute Lymphs (auto) 0.9 L Absolute Monos (auto) 0.6 Absolute Eos (auto) 0.0 Absolute Basos (auto) 0.0 Absolute Nucleated RBC 0.0 Nucleated RBC % 0.0 Sodium 140 Potassium 3.4 L Chloride 108 Carbon Dioxide 29 Anion Gap 3 BUN 14 Creatinine 0.91 Est GFR ( Amer) 101.8 Est GFR (Non-Af Amer) 84.1 BUN/Creatinine Ratio 15.4 Glucose 122 H Calcium 7.3 L Phosphorus 1.7 L Magnesium 2.1 Vancomycin Trough 9.8 Imaging: Neck CT 11/06/19 IMPRESSION: No evidence of epiglottitis. CT Chest 11/06/19 IMPRESSION: Bilateral consolidation consistent with lobar pneumonia worse on the right than on the left. CXR 11/06/19 IMPRESSION: RIGHT BASILAR INFILTRATE AND SMALL PLEURAL EFFUSION SUGGESTIVE OF PNEUMONIA. RECOMMEND FOLLOW-UP CHEST X-RAYS TO RESOLUTION. CXR 11/06/19 IMPRESSION: LINES AND TUBES ABOVE. BIBASILAR ATELECTASIS VERSUS CONSOLIDATION WITH A SMALL RIGHT PLEURAL EFFUSION. Assessment: 64M with hld, gerd, zeenat, presents with acute hypoxic respiratory failure 2/2 Influenza A and concomittent pneumonia. Septic shock. Acute renal failure. Plan: Neuro- -Delirium prec; avoid BDZ CVS- shock - 2/2 sepsis - iv hydration - levophed fo bp support - TTE with normal EF. Mild RV dysfuntion. Resp- acute hypoxic respiratory failure - 2/2 Flu A and pneumonia - VAP bundle - weaning o2 - possible extubation tomorrow ID- septic shock - 2/2 Flu/Pneumonia - possible staph pneumonia given Flu positive - vanco/ceftriaxone/azithro/tamiflu - f/u cultures - iv hydration - lactate now normal - sepsis protocol GI- start tube feeds -GI prophylaxis Renal- acute renal failure - 2/2 sepsis/dehydration - improving - replete potassium/phos - monitor i/o - monitor lytes Heme- monitor cbc Endo-Maintain BG<200, insulin protocol as needed Musculsk- pressure ulcer prophylaxis. Bedrest. Wounds- none Nutrition- tube feeds DVT prophylaxis: hsq GI prophylaxis: ppi Central Line: [facility] (11/06/19) Arterial Line: none Sharpe Cathetor: (11/06/19) Disposition: Patient requires Critical Care/ICU for respiratory failure requiring mechanical ventilation. Vasopressor support. Patient clinical status: Critical Code Status:Full
[2019-11-08] MEDS: Potassium Phosphate IV* 15 MMOLE in NS 0.9% 250 ML* 250 ML IVPB ONE ×2 (08:41→08:42)
[2019-11-08] MEDS: Vancomycin(*) 1,000 MG in NS 0.9% 250 ML* 250 ML IV SCH ×2 (13:38→20:38)
[2019-11-08] MEDS: KCL 20 MEQ/100 ML IVPREMIX* 20 MEQ/100 ML BAG IV SCH ×2 (13:38→17:00)
[2019-11-08] MEDS: cefTRIAXone(*) 1 GM in NS 0.9% 50 ML* 50 ML IVPB SCH (15:35)
[2019-11-08] MEDS: Pantoprazole IV* 40 MG IV SCH (15:39)
[2019-11-08] MEDS: Azithromycin 500 mg/250 ml NS 500 MG/250 ML BAG IVPB SCH (17:06)
[2019-11-08] MEDS: Oseltamivir SUSP 75 MG dose* 75 MG/12.5 ML ORAL.SYRIN PO SCH (20:37)
[2019-11-08] MEDS: Benzocaine/Menthol LOZ* 1 LOZENGE PO PRN (22:39)
[2019-11-09 05:28] LABS: ABS Lymphocytes 0.8 10^3/ul (1.0-4.8); ABS Monocytes 0.9 10^3/ul (0-0.8); ABS Neutrophils 4.8 10^3/ul (1.5-7.7); Eosinophil % 0.2 %; Hematocrit 33 % (42-52); Hemoglobin 11.1 g/dL (14.0-18.0); Lymphocyte % 12.9 %; Mean Corpuscular HGB Conc 34 g/dL (31-36); Mean Corpuscular Hemoglobin 31 pg (27-31); Mean Corpuscular Volume 92 fL (80-94); Mean Platelet Volume 7.5 fL (7.4-10.4); Platelet Count 173 10^3/uL (150-450); Red Blood Count 3.56 10^6 /uL (4.18-5.48); Red Cell Distribution Width 14 % (10-15); White Blood Count 6.5 10^3/uL (3.5-10.8)
[2019-11-09] MEDS: Vancomycin(*) 1,000 MG in NS 0.9% 250 ML* 250 ML IV SCH ×3 (05:30→20:41)
[2019-11-09 06:02] LABS: Calcium 7.7 mg/dL (8.6-10.3); Magnesium 1.8 mg/dL (1.9-2.7); Potassium 3.4 mmol/L (3.5-5.0)
[2019-11-09 06:08] LABS: BUN/Creatinine Ratio 14.3 (8-20); EGFR African American 101.8 (>60); EGFR Non-African American 84.1 (>60); Phosphorus 2.8 mg/dL (2.5-5.0)
[2019-11-09] MEDS: Heparin VIAL(*) 5000 UNITS/ML VIAL (FIVE THOUSAND) SUBCUT SCH ×2 (09:29→20:42)
[2019-11-09] MEDS: Oseltamivir SUSP 75 MG dose* 75 MG/12.5 ML ORAL.SYRIN PO SCH ×2 (09:30→20:41)
[2019-11-09] MEDS: Pantoprazole IV* 40 MG IV SCH (14:54)
[2019-11-09] MEDS: cefTRIAXone(*) 1 GM in NS 0.9% 50 ML* 50 ML IVPB SCH (14:54)
[2019-11-09] MEDS: Azithromycin 500 mg/250 ml NS 500 MG/250 ML BAG IVPB SCH (16:36)
--- NOTE | 2019-11-09 18:02 | PN ---
Subjective Date of Service: 11/09/19 Interval History: Mr. Goldberg is feeling okay. He is looking forward to getting out of bed. Knows he feels much better than he did when he got here. Still coughing a lot. Remains on 10L O2 Objective Active Medications: Acetaminophen (Tylenol Adult Liq*) 650 mg PO Q4H PRN PRN Reason: MILD PAIN or TEMP > 100.4 Last Admin: 11/07/19 18:15 Dose: 650 mg Albuterol/Ipratropium (Duoneb (Albuterol 2.5 Mg/Ipratropium 0.5 Mg)) 1 neb INH Q4H PRN PRN Reason: SOB/WHEEZING Last Admin: 11/08/19 23:43 Dose: 1 neb Heparin Sodium (Porcine) (Heparin Vial(*)) 5,000 units SUBCUT Q12HR [facility] Last Admin: 11/09/19 09:29 Dose: 5,000 units Azithromycin (Zithromax 500 Mg/250 Ml) 500 mg in 250 mls @ 250 mls/hr IVPB Q24H [facility] Stop: 11/10/19 15:59 Last Admin: 11/09/19 16:36 Dose: 250 mls/hr Ceftriaxone Sodium 1 gm/ (Sodium Chloride) 50 mls @ 100 mls/hr IVPB Q24H [facility] Stop: 11/14/19 15:33 Last Admin: 11/09/19 14:54 Dose: 100 mls/hr Vancomycin HCl 1,000 mg/ (Sodium Chloride) 250 mls @ 166.667 mls/hr IV Q8H [facility] Last Admin: 11/09/19 14:54 Dose: 166.667 mls/hr Oseltamivir Phosphate (Tamiflu Susp 75 Mg Dose*) 75 mg PO BID [facility] Last Admin: 11/09/19 09:30 Dose: 75 mg Pantoprazole Sodium (Protonix Iv*) 40 mg IV Q24H [facility] Last Admin: 11/09/19 14:54 Dose: 40 mg Pharmacy Consult (Vancomycin Per Pharmacy*) 1 note FOLLOW UP .VANC PER PHARMACY [facility]; Protocol Pharmacy Profile Note (Vancomycin Trough Check) 1 note FOLLOW UP 1230 ONE Stop: 11/11/19 12:31 Throat Lozenges (Chloraseptic Jean Carlos*) 1 jean carlos PO Q6H PRN PRN Reason: SORE THROAT Last Admin: 11/08/19 22:39 Dose: 1 jean carlos Vital Signs - 8 hr 11/09/19 11/09/19 11:37 15:46 Temperature 99.5 F 98.7 F Pulse Rate 56 64 Respiratory 20 Rate Blood Pressure 125/60 115/55 (mmHg) O2 Sat by Pulse 93 97 Oximetry Oxygen Devices in Use Now: Nasal Cannula, OxyMask Appearance: alert, ill appearing, no distress, tachypneic Eyes: No Scleral Icterus Ears/Nose/Mouth/Throat: NL Teeth, Lips, Gums Neck: NL Appearance and Movements; NL JVP Respiratory: Symmetrical Chest Expansion and Respiratory Effort, - - decreased breath sounds b/l, markedly decreased in the bases Cardiovascular: NL Sounds; No Murmurs; No JVD, RRR Abdominal: NL Sounds; No Tenderness; No Distention, - - kou Lymphatic: No Cervical Adenopathy Extremities: No Edema Skin: No Rash or Ulcers Neurological: Alert and Oriented x 3 Result Diagrams: 11/09/19 05:15 11/09/19 05:15 Microbiology and Other Data: Microbiology 11/06/19 13:30 Aerobic Blood Culture - Preliminary Blood Venous No Growth Day 3 Anaerobic Blood Culture - Preliminary No Growth Day 3 11/06/19 13:29 Aerobic Blood Culture - Preliminary Blood Venous No Growth Day 3 Anaerobic Blood Culture - Preliminary No Growth Day 3 11/06/19 16:45 Urine Culture - Final Urine No Growth (<1,000 CFU/mL) 11/06/19 20:54 Streptococcus pneumoniae Ag Screen - Final Urine Negative S. pneumo Antigen 11/06/19 18:23 Nasal Screen MRSA (PCR) - Final Nasal Mrsa Not Detected 11/06/19 16:45 Legionella Urinary Antigen - Final Urine Negative Legionella Antigen Assess/Plan/Problems-Billing Assessment: This is a 64 year old man with MARLEEN who was admitted on 11/06 with pneumonia, influenza, septic shock, ARF, VDRF, extubated 11/08 - Patient Problems (1) Septic shock Current Visit: Yes Status: Acute Code(s): A41.9 - SEPSIS, UNSPECIFIED ORGANISM; R65.21 - SEVERE SEPSIS WITH SEPTIC SHOCK SNOMED Code(s): 19920032 Comment: resolved (2) Pneumonia Current Visit: Yes Status: Acute Code(s): J18.9 - PNEUMONIA, UNSPECIFIED ORGANISM SNOMED Code(s): 573515359 Comment: continue ceftriaxone and azithromycin repeat CXR today (3) Acute respiratory failure with hypoxia Current Visit: Yes Status: Acute Code(s): J96.01 - ACUTE RESPIRATORY FAILURE WITH HYPOXIA SNOMED Code(s): 12009854 Comment: repeat CXR today initially requiring intubation; extubaed on 11/08 continue to wean down O2 (4) Influenza Current Visit: Yes Status: Acute Code(s): J11.1 - FLU DUE TO UNIDENTIFIED INFLUENZA VIRUS W OTH RESP MANIFEST SNOMED Code(s): 9125500 Comment: continue tamiflu (5) Acute renal failure Current Visit: Yes Status: Acute Comment: resolved Status and Disposition: OOB with PT DC kuo still with high o2 requirements
[2019-11-09] MEDS ORDERED: Potassium Chloride* LIQUID 20 MEQ/15 ML UDC PO ONE (18:05)
[2019-11-10] MEDS: Vancomycin(*) 1,000 MG in NS 0.9% 250 ML* 250 ML IV SCH ×3 (05:38→20:13)
[2019-11-10 05:55] LABS: Hematocrit 35 % (42-52); Hemoglobin 11.6 g/dL (14.0-18.0); Mean Corpuscular HGB Conc 34 g/dL (31-36); Mean Corpuscular Hemoglobin 31 pg (27-31); Mean Corpuscular Volume 92 fL (80-94); Mean Platelet Volume 7.4 fL (7.4-10.4); Platelet Count 239 10^3/uL (150-450); Red Blood Count 3.76 10^6 /uL (4.18-5.48); Red Cell Distribution Width 14 % (10-15); White Blood Count 6.8 10^3/uL (3.5-10.8)
[2019-11-10 06:11] LABS: Calcium 8.2 mg/dL (8.6-10.3); Magnesium 1.8 mg/dL (1.9-2.7); Potassium 3.5 mmol/L (3.5-5.0)
[2019-11-10 06:17] LABS: BUN/Creatinine Ratio 17.9 (8-20); EGFR African American 121.6 (>60); EGFR Non-African American 100.5 (>60)
[2019-11-10 06:23] LABS: ABS Eosinophils 0.1 10^3/ul (0-0.6); ABS Lymphocytes 0.8 10^3/ul (1.0-4.8); ABS Monocytes 1.3 10^3/ul (0-0.8); ABS Neutrophils 4.5 10^3/ul (1.5-7.7); Eosinophil % 0.8 %; Lymphocyte % 12.5 %
[2019-11-10] MEDS: Heparin VIAL(*) 5000 UNITS/ML VIAL (FIVE THOUSAND) SUBCUT SCH ×2 (10:52→20:16)
[2019-11-10] MEDS: Oseltamivir SUSP 75 MG dose* 75 MG/12.5 ML ORAL.SYRIN PO SCH ×2 (10:52→20:17)
[2019-11-10] MEDS: Pantoprazole IV* 40 MG IV SCH (16:15)
[2019-11-10] MEDS: cefTRIAXone(*) 1 GM in NS 0.9% 50 ML* 50 ML IVPB SCH (16:15)
[2019-11-10] MEDS ORDERED: Furosemide TAB* 20 MG PO ONE (16:50)
--- NOTE | 2019-11-10 16:57 | PN ---
Subjective Date of Service: 11/10/19 Interval History: Mr. Goldberg is feeling much better today. He's been out of bed to the chair, walking the hallway with his nurse, Song, and his kuo catheter has been removed. Song was able to wean his o2 down to 3L. Objective Active Medications: Acetaminophen (Tylenol Adult Liq*) 650 mg PO Q4H PRN PRN Reason: MILD PAIN or TEMP > 100.4 Last Admin: 11/07/19 18:15 Dose: 650 mg Albuterol/Ipratropium (Duoneb (Albuterol 2.5 Mg/Ipratropium 0.5 Mg)) 1 neb INH Q4H PRN PRN Reason: SOB/WHEEZING Last Admin: 11/08/19 23:43 Dose: 1 neb Furosemide (Lasix Tab*) 20 mg PO ONCE ONE Stop: 11/10/19 16:51 Heparin Sodium (Porcine) (Heparin Vial(*)) 5,000 units SUBCUT Q12HR [facility] Last Admin: 11/10/19 10:52 Dose: 5,000 units Ceftriaxone Sodium 1 gm/ (Sodium Chloride) 50 mls @ 100 mls/hr IVPB Q24H [facility] Stop: 11/14/19 15:33 Last Admin: 11/10/19 16:15 Dose: 100 mls/hr Vancomycin HCl 1,000 mg/ (Sodium Chloride) 250 mls @ 166.667 mls/hr IV Q8H [facility] Last Admin: 11/10/19 13:09 Dose: 166.667 mls/hr Oseltamivir Phosphate (Tamiflu Susp 75 Mg Dose*) 75 mg PO BID [facility] Last Admin: 11/10/19 10:52 Dose: 75 mg Pantoprazole Sodium (Protonix Iv*) 40 mg IV Q24H [facility] Last Admin: 11/10/19 16:15 Dose: 40 mg Pharmacy Consult (Vancomycin Per Pharmacy*) 1 note FOLLOW UP .VANC PER PHARMACY [facility]; Protocol Pharmacy Profile Note (Vancomycin Trough Check) 1 note FOLLOW UP 1230 ONE Stop: 11/11/19 12:31 Throat Lozenges (Chloraseptic Jean Carlos*) 1 jean carlos PO Q6H PRN PRN Reason: SORE THROAT Last Admin: 11/08/19 22:39 Dose: 1 jean carlos Vital Signs - 8 hr 11/10/19 11/10/19 11:32 15:28 Temperature 97.2 F 98.6 F Pulse Rate 66 68 Respiratory 32 24 Rate Blood Pressure 133/63 130/67 (mmHg) O2 Sat by Pulse 93 95 Oximetry Oxygen Devices in Use Now: OxyMask Appearance: alert, sitting up in the chair Eyes: No Scleral Icterus Ears/Nose/Mouth/Throat: NL Teeth, Lips, Gums Respiratory: - - crackles at the bases, decreased breath sounds at the bases Cardiovascular: NL Sounds; No Murmurs; No JVD Abdominal: - - mildly distended Lymphatic: No Cervical Adenopathy Extremities: - - 2+ edema b/l Result Diagrams: 11/10/19 05:36 11/10/19 05:36 Microbiology and Other Data: Microbiology 11/06/19 13:30 Aerobic Blood Culture - Preliminary Blood Venous No Growth Day 3 Anaerobic Blood Culture - Preliminary No Growth Day 3 11/06/19 13:29 Aerobic Blood Culture - Preliminary Blood Venous No Growth Day 3 Anaerobic Blood Culture - Preliminary No Growth Day 3 11/06/19 16:45 Urine Culture - Final Urine No Growth (<1,000 CFU/mL) 11/06/19 20:54 Streptococcus pneumoniae Ag Screen - Final Urine Negative S. pneumo Antigen 11/06/19 18:23 Nasal Screen MRSA (PCR) - Final Nasal Mrsa Not Detected 11/06/19 16:45 Legionella Urinary Antigen - Final Urine Negative Legionella Antigen Assess/Plan/Problems-Billing Assessment: This is a 64 year old man with MARLEEN who was admitted on 11/06 with pneumonia, influenza, septic shock, ARF, VDRF, extubated 11/08 - Patient Problems (1) Septic shock Current Visit: Yes Status: Acute Code(s): A41.9 - SEPSIS, UNSPECIFIED ORGANISM; R65.21 - SEVERE SEPSIS WITH SEPTIC SHOCK SNOMED Code(s): 73173811 Comment: resolved (2) Pneumonia Current Visit: Yes Status: Acute Code(s): J18.9 - PNEUMONIA, UNSPECIFIED ORGANISM SNOMED Code(s): 806938129 Comment: continue ceftriaxone and azithromycin (day 5) micro has been unremarkable (3) Acute respiratory failure with hypoxia Current Visit: Yes Status: Acute Code(s): J96.01 - ACUTE RESPIRATORY FAILURE WITH HYPOXIA SNOMED Code(s): 93201126 Comment: improving CXR yesterday showed b/l pleural effusions and some edema; I suspect some degree of volume overload so will give one dose of lasix (4) Influenza Current Visit: Yes Status: Acute Code(s): J11.1 - FLU DUE TO UNIDENTIFIED INFLUENZA VIRUS W OTH RESP MANIFEST SNOMED Code(s): 6038466 Comment: continue tamiflu (day 5) (5) Acute renal failure Current Visit: Yes Status: Acute Comment: resolved
[2019-11-11] MEDS: Vancomycin(*) 1,000 MG in NS 0.9% 250 ML* 250 ML IV SCH ×3 (04:25→20:20)
[2019-11-11] MEDS: Benzocaine/Menthol LOZ* 1 LOZENGE PO PRN (04:31)
[2019-11-11] MEDS: Heparin VIAL(*) 5000 UNITS/ML VIAL (FIVE THOUSAND) SUBCUT SCH ×2 (09:31→20:19)
[2019-11-11] MEDS: Oseltamivir SUSP 75 MG dose* 75 MG/12.5 ML ORAL.SYRIN PO SCH ×2 (09:31→20:19)
[2019-11-11] MEDS ORDERED: Vancomycin Trough Check NOTE FOLLOW UP ONE (12:30)
[2019-11-11 13:38] LABS: EGFR African American 111.7 (>60); EGFR Non-African American 92.3 (>60)
[2019-11-11 13:43] LABS: Vancomycin Trough 13.9 mcg/mL
[2019-11-11] MEDS: Pantoprazole IV* 40 MG IV SCH (16:03)
[2019-11-11] MEDS: cefTRIAXone(*) 1 GM in NS 0.9% 50 ML* 50 ML IVPB SCH (16:03)
--- NOTE | 2019-11-11 17:15 | PN ---
Subjective Date of Service: 11/11/19 Interval History: Reports some improvement.Still very tired and sob on ambulation Objective Active Medications: Acetaminophen (Tylenol Adult Liq*) 650 mg PO Q4H PRN PRN Reason: MILD PAIN or TEMP > 100.4 Last Admin: 11/07/19 18:15 Dose: 650 mg Albuterol/Ipratropium (Duoneb (Albuterol 2.5 Mg/Ipratropium 0.5 Mg)) 1 neb INH Q4H PRN PRN Reason: SOB/WHEEZING Last Admin: 11/08/19 23:43 Dose: 1 neb Heparin Sodium (Porcine) (Heparin Vial(*)) 5,000 units SUBCUT Q12HR [facility] Last Admin: 11/11/19 09:31 Dose: 5,000 units Heparin Sodium (Porcine) (Heparin Flush Picc/Ml/Cvc(*)) 1 ml FLUSH 0600,1800 [facility]; Protocol Last Admin: 11/11/19 12:43 Dose: 1 ml Ceftriaxone Sodium 1 gm/ (Sodium Chloride) 50 mls @ 100 mls/hr IVPB Q24H [facility] Stop: 11/14/19 15:33 Last Admin: 11/11/19 16:03 Dose: 100 mls/hr Vancomycin HCl 1,000 mg/ (Sodium Chloride) 250 mls @ 166.667 mls/hr IV Q8H [facility] Last Admin: 11/11/19 14:19 Dose: 166.667 mls/hr Oseltamivir Phosphate (Tamiflu Susp 75 Mg Dose*) 75 mg PO BID [facility] Stop: 11/13/19 09:01 Last Admin: 11/11/19 09:31 Dose: 75 mg Pantoprazole Sodium (Protonix Iv*) 40 mg IV Q24H [facility] Last Admin: 11/11/19 16:03 Dose: 40 mg Pharmacy Consult (Vancomycin Per Pharmacy*) 1 note FOLLOW UP .VANC PER PHARMACY [facility]; Protocol Pharmacy Profile Note (Vancomycin Trough Check) 1 note FOLLOW UP 1230 ONE Stop: 11/13/19 12:31 Throat Lozenges (Chloraseptic Jean Carlos*) 1 jean carlos PO Q6H PRN PRN Reason: SORE THROAT Last Admin: 11/11/19 04:31 Dose: 1 jean carlos Vital Signs - 8 hr 11/11/19 11:31 Temperature 98.4 F Pulse Rate 65 Respiratory 20 Rate Blood Pressure 122/65 (mmHg) O2 Sat by Pulse 96 Oximetry Oxygen Devices in Use Now: Nasal Cannula Eyes: No Scleral Icterus Ears/Nose/Mouth/Throat: NL Teeth, Lips, Gums Neck: NL Appearance and Movements; NL JVP Respiratory: Symmetrical Chest Expansion and Respiratory Effort Cardiovascular: NL Sounds; No Murmurs; No JVD Abdominal: NL Sounds; No Tenderness; No Distention Extremities: No Edema Neurological: Alert and Oriented x 3 Result Diagrams: 11/10/19 05:36 11/11/19 13:05 Microbiology and Other Data: Microbiology 11/06/19 13:30 Aerobic Blood Culture - Preliminary Blood Venous No Growth Day 3 Anaerobic Blood Culture - Preliminary No Growth Day 3 11/06/19 13:29 Aerobic Blood Culture - Preliminary Blood Venous No Growth Day 3 Anaerobic Blood Culture - Preliminary No Growth Day 3 11/06/19 16:45 Urine Culture - Final Urine No Growth (<1,000 CFU/mL) 11/06/19 20:54 Streptococcus pneumoniae Ag Screen - Final Urine Negative S. pneumo Antigen 11/06/19 18:23 Nasal Screen MRSA (PCR) - Final Nasal Mrsa Not Detected 11/06/19 16:45 Legionella Urinary Antigen - Final Urine Negative Legionella Antigen Assess/Plan/Problems-Billing Assessment: This is a 64 year old man with MARLEEN who was admitted on 11/06 with pneumonia, influenza, septic shock, ARF, VDRF, extubated 11/08 - Patient Problems (1) Septic shock Current Visit: Yes Status: Acute Code(s): A41.9 - SEPSIS, UNSPECIFIED ORGANISM; R65.21 - SEVERE SEPSIS WITH SEPTIC SHOCK SNOMED Code(s): 41226938 Comment: resolved (2) Acute respiratory failure with hypoxia Current Visit: Yes Status: Acute Code(s): J96.01 - ACUTE RESPIRATORY FAILURE WITH HYPOXIA SNOMED Code(s): 81518242 Comment: improving CXR yesterday showed b/l pleural effusions and some edema; I suspect some degree of volume overload so will give one dose of lasix (3) Influenza Current Visit: Yes Status: Acute Code(s): J11.1 - FLU DUE TO UNIDENTIFIED INFLUENZA VIRUS W OTH RESP MANIFEST SNOMED Code(s): 2599721 Comment: continue tamiflu (day 5) (4) Pneumonia Current Visit: Yes Status: Acute Code(s): J18.9 - PNEUMONIA, UNSPECIFIED ORGANISM SNOMED Code(s): 358547871 Comment: continue ceftriaxone and azithromycin (day 5) micro has been unremarkable (5) Acute renal failure Current Visit: Yes Status: Acute Comment: resolved Status and Disposition: repeat swallow eval pt ot assess 02 eval
[2019-11-12 05:09] LABS: Hematocrit 36 % (42-52); Mean Corpuscular HGB Conc 34 g/dL (31-36); Mean Corpuscular Hemoglobin 31 pg (27-31); Mean Corpuscular Volume 92 fL (80-94); Platelet Count 348 10^3/uL (150-450); Red Blood Count 3.85 10^6 /uL (4.18-5.48); Red Cell Distribution Width 14 % (10-15); White Blood Count 7.1 10^3/uL (3.5-10.8)
[2019-11-12] MEDS: Vancomycin(*) 1,000 MG in NS 0.9% 250 ML* 250 ML IV SCH ×3 (05:16→21:06)
[2019-11-12 05:21] LABS: Calcium 8.3 mg/dL (8.6-10.3); Magnesium 1.8 mg/dL (1.9-2.7); Potassium 3.5 mmol/L (3.5-5.0)
[2019-11-12 05:27] LABS: EGFR African American 100.5 (>60); EGFR Non-African American 83.1 (>60)
[2019-11-12 06:51] LABS: ABS Eosinophils 0.3 10^3/ul (0-0.6); ABS Lymphocytes 1.3 10^3/ul (1.0-4.8); ABS Monocytes 1.1 10^3/ul (0-0.8); ABS Neutrophils 4.5 10^3/ul (1.5-7.7); Eosinophil % 3.7 %; Lymphocyte % 17.8 %
[2019-11-12] MEDS: Oseltamivir SUSP 75 MG dose* 75 MG/12.5 ML ORAL.SYRIN PO SCH ×2 (08:33→21:06)
[2019-11-12] MEDS: Heparin VIAL(*) 5000 UNITS/ML VIAL (FIVE THOUSAND) SUBCUT SCH ×2 (08:33→21:06)
--- NOTE | 2019-11-12 13:12 | PN ---
Subjective Date of Service: 11/12/19 Interval History: Improving sob.Still needing 0xygen. Tired Objective Active Medications: Acetaminophen (Tylenol Adult Liq*) 650 mg PO Q4H PRN PRN Reason: MILD PAIN or TEMP > 100.4 Last Admin: 11/07/19 18:15 Dose: 650 mg Albuterol/Ipratropium (Duoneb (Albuterol 2.5 Mg/Ipratropium 0.5 Mg)) 1 neb INH Q4H PRN PRN Reason: SOB/WHEEZING Last Admin: 11/08/19 23:43 Dose: 1 neb Heparin Sodium (Porcine) (Heparin Vial(*)) 5,000 units SUBCUT Q12HR [facility] Last Admin: 11/12/19 08:33 Dose: 5,000 units Heparin Sodium (Porcine) (Heparin Flush Picc/Ml/Cvc(*)) 1 ml FLUSH 0600,1800 [facility]; Protocol Last Admin: 11/12/19 05:16 Dose: 1 ml Ceftriaxone Sodium 1 gm/ (Sodium Chloride) 50 mls @ 100 mls/hr IVPB Q24H [facility] Stop: 11/14/19 15:33 Last Admin: 11/11/19 16:03 Dose: 100 mls/hr Vancomycin HCl 1,000 mg/ (Sodium Chloride) 250 mls @ 166.667 mls/hr IV Q8H [facility] Last Admin: 11/12/19 13:09 Dose: 166.667 mls/hr Oseltamivir Phosphate (Tamiflu Susp 75 Mg Dose*) 75 mg PO BID [facility] Stop: 11/13/19 09:01 Last Admin: 11/12/19 08:33 Dose: 75 mg Pantoprazole Sodium (Protonix Iv*) 40 mg IV Q24H [facility] Last Admin: 11/11/19 16:03 Dose: 40 mg Pharmacy Consult (Vancomycin Per Pharmacy*) 1 note FOLLOW UP .VANC PER PHARMACY [facility]; Protocol Pharmacy Profile Note (Vancomycin Trough Check) 1 note FOLLOW UP 1230 ONE Stop: 11/13/19 12:31 Throat Lozenges (Chloraseptic Jean Carlos*) 1 jean carlos PO Q6H PRN PRN Reason: SORE THROAT Last Admin: 11/11/19 04:31 Dose: 1 jean carlos Vital Signs - 8 hr 11/12/19 11/12/19 11/12/19 07:40 08:00 11:05 Temperature 97.9 F 97.9 F Pulse Rate 61 67 Respiratory 22 22 20 Rate Blood Pressure 121/72 122/69 (mmHg) O2 Sat by Pulse 94 96 Oximetry Oxygen Devices in Use Now: Nasal Cannula Eyes: No Scleral Icterus Ears/Nose/Mouth/Throat: NL Teeth, Lips, Gums Neck: NL Appearance and Movements; NL JVP Respiratory: Symmetrical Chest Expansion and Respiratory Effort, Clear to Auscultation Cardiovascular: NL Sounds; No Murmurs; No JVD Abdominal: NL Sounds; No Tenderness; No Distention Extremities: No Edema, - - bilateral LE edema Neurological: Alert and Oriented x 3 Result Diagrams: 11/12/19 04:42 11/12/19 04:42 Microbiology and Other Data: Microbiology 11/06/19 13:30 Aerobic Blood Culture - Preliminary Blood Venous No Growth Day 3 Anaerobic Blood Culture - Preliminary No Growth Day 3 11/06/19 13:29 Aerobic Blood Culture - Preliminary Blood Venous No Growth Day 3 Anaerobic Blood Culture - Preliminary No Growth Day 3 11/06/19 16:45 Urine Culture - Final Urine No Growth (<1,000 CFU/mL) 11/06/19 20:54 Streptococcus pneumoniae Ag Screen - Final Urine Negative S. pneumo Antigen 11/06/19 18:23 Nasal Screen MRSA (PCR) - Final Nasal Mrsa Not Detected 11/06/19 16:45 Legionella Urinary Antigen - Final Urine Negative Legionella Antigen Assess/Plan/Problems-Billing Assessment: This is a 64 year old man with MARLEEN who was admitted on 11/06 with pneumonia, influenza, septic shock, ARF, VDRF, extubated 11/08 - Patient Problems (1) Septic shock Current Visit: Yes Status: Acute Code(s): A41.9 - SEPSIS, UNSPECIFIED ORGANISM; R65.21 - SEVERE SEPSIS WITH SEPTIC SHOCK SNOMED Code(s): 54579216 Comment: resolved (2) Acute respiratory failure with hypoxia Current Visit: Yes Status: Acute Code(s): J96.01 - ACUTE RESPIRATORY FAILURE WITH HYPOXIA SNOMED Code(s): 19809271 Comment: improving (3) Influenza Current Visit: Yes Status: Acute Code(s): J11.1 - FLU DUE TO UNIDENTIFIED INFLUENZA VIRUS W OTH RESP MANIFEST SNOMED Code(s): 0664650 Comment: continue tamiflu (total 5 days) (4) Pneumonia Current Visit: Yes Status: Acute Code(s): J18.9 - PNEUMONIA, UNSPECIFIED ORGANISM SNOMED Code(s): 735495110 Comment: continue ceftriaxone and azithromycin (5-7 days) micro has been unremarkable (5) Acute renal failure Current Visit: Yes Status: Acute Comment: resolved Status and Disposition: repeat swallow eval pt ot assess 02 eval
[2019-11-12] MEDS ORDERED: Magnesium Sulfate 2 GM IV* 2 GM/50 ML BAG IVPB ONE (13:30)
[2019-11-12] MEDS: Pantoprazole IV* 40 MG IV SCH (15:40)
[2019-11-12] MEDS: cefTRIAXone(*) 1 GM in NS 0.9% 50 ML* 50 ML IVPB SCH (15:40)
[2019-11-13] MEDS: Vancomycin(*) 1,000 MG in NS 0.9% 250 ML* 250 ML IV SCH (04:17)
[2019-11-13 06:39] LABS: Hematocrit 32 % (42-52); Hemoglobin 10.9 g/dL (14.0-18.0); Mean Corpuscular HGB Conc 34 g/dL (31-36); Mean Corpuscular Hemoglobin 31 pg (27-31); Mean Corpuscular Volume 91 fL (80-94); Mean Platelet Volume 6.8 fL (7.4-10.4); Platelet Count 360 10^3/uL (150-450); Red Blood Count 3.53 10^6 /uL (4.18-5.48); Red Cell Distribution Width 14 % (10-15)
[2019-11-13 06:57] LABS: BUN/Creatinine Ratio 15.1 (8-20); Calcium 7.9 mg/dL (8.6-10.3); EGFR African American 108.7 (>60); EGFR Non-African American 89.8 (>60); Potassium 3.8 mmol/L (3.5-5.0)
[2019-11-13 07:13] LABS: ABS Eosinophils 0.2 10^3/ul (0-0.6); ABS Lymphocytes 1.3 10^3/ul (1.0-4.8); ABS Monocytes 0.9 10^3/ul (0-0.8); ABS Neutrophils 4.6 10^3/ul (1.5-7.7); Eosinophil % 3.4 %; Lymphocyte % 18.4 %
[2019-11-13] MEDS: Oseltamivir SUSP 75 MG dose* 75 MG/12.5 ML ORAL.SYRIN PO SCH (09:18)
[2019-11-13] MEDS: Heparin VIAL(*) 5000 UNITS/ML VIAL (FIVE THOUSAND) SUBCUT SCH ×2 (09:18→21:36)
[2019-11-13] MEDS ORDERED: Vancomycin Trough Check NOTE FOLLOW UP ONE (12:30)
[2019-11-13] MEDS: cefTRIAXone(*) 1 GM in NS 0.9% 50 ML* 50 ML IVPB SCH (16:07)
[2019-11-13] MEDS ORDERED: Furosemide IV* 10 MG/ML 2 ML VIAL (20 MG) IV ONE (16:21)
--- NOTE | 2019-11-13 16:26 | PN ---
Subjective Date of Service: 11/13/19 Interval History: Reports improvement in breathing. Still on Family History: Unchanged from Admission Social History: Unchanged from Admission Past Medical History: Unchanged from Admission Objective Active Medications: Acetaminophen (Tylenol Adult Liq*) 650 mg PO Q4H PRN PRN Reason: MILD PAIN or TEMP > 100.4 Last Admin: 11/07/19 18:15 Dose: 650 mg Albuterol/Ipratropium (Duoneb (Albuterol 2.5 Mg/Ipratropium 0.5 Mg)) 1 neb INH Q4H PRN PRN Reason: SOB/WHEEZING Last Admin: 11/08/19 23:43 Dose: 1 neb Furosemide (Lasix Iv*) 20 mg IV ONCE ONE Stop: 11/13/19 16:22 Heparin Sodium (Porcine) (Heparin Vial(*)) 5,000 units SUBCUT Q12HR [facility] Last Admin: 11/13/19 09:18 Dose: 5,000 units Ceftriaxone Sodium 1 gm/ (Sodium Chloride) 50 mls @ 100 mls/hr IVPB Q24H [facility] Stop: 11/14/19 15:33 Last Admin: 11/13/19 16:07 Dose: 100 mls/hr Pantoprazole Sodium (Protonix Iv*) 40 mg IV Q24H [facility] Last Admin: 11/12/19 15:40 Dose: 40 mg Throat Lozenges (Chloraseptic Jean Carlos*) 1 jean carlos PO Q6H PRN PRN Reason: SORE THROAT Last Admin: 11/11/19 04:31 Dose: 1 jean carlos Vital Signs - 8 hr 11/13/19 11/13/19 13:14 15:37 Temperature 98.4 F 97.6 F Pulse Rate 62 69 Respiratory 20 17 Rate Blood Pressure 113/63 127/68 (mmHg) O2 Sat by Pulse 98 98 Oximetry Oxygen Devices in Use Now: Nasal Cannula Eyes: No Scleral Icterus Ears/Nose/Mouth/Throat: NL Teeth, Lips, Gums Neck: NL Appearance and Movements; NL JVP Respiratory: Symmetrical Chest Expansion and Respiratory Effort, Clear to Auscultation Cardiovascular: NL Sounds; No Murmurs; No JVD Abdominal: NL Sounds; No Tenderness; No Distention Extremities: No Edema Neurological: Alert and Oriented x 3 Result Diagrams: 11/13/19 05:53 11/13/19 05:53 Microbiology and Other Data: Microbiology 11/06/19 13:30 Aerobic Blood Culture - Preliminary Blood Venous No Growth Day 3 Anaerobic Blood Culture - Preliminary No Growth Day 3 11/06/19 13:29 Aerobic Blood Culture - Preliminary Blood Venous No Growth Day 3 Anaerobic Blood Culture - Preliminary No Growth Day 3 11/06/19 16:45 Urine Culture - Final Urine No Growth (<1,000 CFU/mL) 11/06/19 20:54 Streptococcus pneumoniae Ag Screen - Final Urine Negative S. pneumo Antigen 11/06/19 18:23 Nasal Screen MRSA (PCR) - Final Nasal Mrsa Not Detected 11/06/19 16:45 Legionella Urinary Antigen - Final Urine Negative Legionella Antigen Assess/Plan/Problems-Billing Assessment: This is a 64 year old man with MARLEEN who was admitted on 11/06 with pneumonia, influenza, septic shock, ARF, VDRF, extubated 11/08 - Patient Problems (1) Septic shock Current Visit: Yes Status: Acute Code(s): A41.9 - SEPSIS, UNSPECIFIED ORGANISM; R65.21 - SEVERE SEPSIS WITH SEPTIC SHOCK SNOMED Code(s): 29182174 Comment: resolved (2) Acute respiratory failure with hypoxia Current Visit: Yes Status: Acute Code(s): J96.01 - ACUTE RESPIRATORY FAILURE WITH HYPOXIA SNOMED Code(s): 50411662 Comment: improving still on 02 dips to 80 at night per study will check 02 ambulation tomorrow lasix 20 mg iv pleural effusions on cxr today to see if able to wean (3) Influenza Current Visit: Yes Status: Acute Code(s): J11.1 - FLU DUE TO UNIDENTIFIED INFLUENZA VIRUS W OTH RESP MANIFEST SNOMED Code(s): 9291192 Comment: continue tamiflu (total 5 days) (4) Pneumonia Current Visit: Yes Status: Acute Code(s): J18.9 - PNEUMONIA, UNSPECIFIED ORGANISM SNOMED Code(s): 133099991 Comment: continue ceftriaxone and vanco (7 days) completed vanco.stopped continue ceftriaxone till tomorrow and decide if needed further po doxy on discharge or off abx based on progress (5) Acute renal failure Current Visit: Yes Status: Acute Comment: resolved Status and Disposition: possible d/c in am with 02 if needed and home carel
[2019-11-13] MEDS: Pantoprazole IV* 40 MG IV SCH (17:45)
[2019-11-13 19:44] LABS: Urine Appearance Clear; Urine Bilirubin Negative (Negative); Urine Blood Negative (Negative); Urine Color Colorless; Urine Glucose Negative (Negative); Urine Ketones Negative (Negative); Urine Nitrite Negative (Negative); Urine Protein Negative (Negative); Urine Specific Gravity 1.005 (1.010-1.030); Urine Urobilinogen Negative (Negative)
[2019-11-14 04:47] LABS: ABS Eosinophils 0.2 10^3/ul (0-0.6); ABS Lymphocytes 1.3 10^3/ul (1.0-4.8); ABS Monocytes 0.9 10^3/ul (0-0.8); ABS Neutrophils 4.9 10^3/ul (1.5-7.7); Eosinophil % 2.5 %; Hematocrit 30 % (42-52); Hemoglobin 10.7 g/dL (14.0-18.0); Lymphocyte % 18.2 %; Mean Corpuscular HGB Conc 36 g/dL (31-36); Mean Corpuscular Hemoglobin 33 pg (27-31); Mean Corpuscular Volume 92 fL (80-94); Mean Platelet Volume 6.9 fL (7.4-10.4); Platelet Count 396 10^3/uL (150-450); Red Blood Count 3.28 10^6 /uL (4.18-5.48); Red Cell Distribution Width 14 % (10-15); White Blood Count 7.4 10^3/uL (3.5-10.8)
[2019-11-14 05:03] LABS: BUN/Creatinine Ratio 15.7 (8-20); Calcium 8.6 mg/dL (8.6-10.3); EGFR African American 104.5 (>60); EGFR Non-African American 86.3 (>60); Potassium 3.8 mmol/L (3.5-5.0)
[2019-11-14] MEDS ORDERED: Furosemide IV* 10 MG/ML 2 ML VIAL (20 MG) IV ONE (07:00)
[2019-11-14] MEDS: Pantoprazole TAB * 40 MG TAB PO SCH (08:02)
[2019-11-14] MEDS: Heparin VIAL(*) 5000 UNITS/ML VIAL (FIVE THOUSAND) SUBCUT SCH ×2 (08:02→21:19)
--- NOTE | 2019-11-14 16:27 | PN ---
Subjective Date of Service: 11/14/19 Interval History: Improving everyday .Still needing 02. SOB on ambulation Family History: Unchanged from Admission Social History: Unchanged from Admission Past Medical History: Unchanged from Admission Objective Active Medications: Acetaminophen (Tylenol Adult Liq*) 650 mg PO Q4H PRN PRN Reason: MILD PAIN or TEMP > 100.4 Last Admin: 11/07/19 18:15 Dose: 650 mg Albuterol/Ipratropium (Duoneb (Albuterol 2.5 Mg/Ipratropium 0.5 Mg)) 1 neb INH Q4H PRN PRN Reason: SOB/WHEEZING Last Admin: 11/08/19 23:43 Dose: 1 neb Doxycycline Hyclate (Vibramycin Cap(*)) 100 mg PO BID [facility] Furosemide (Lasix Iv*) 20 mg IV DAILY ONE Stop: 11/15/19 07:01 Heparin Sodium (Porcine) (Heparin Vial(*)) 5,000 units SUBCUT Q12HR [facility] Last Admin: 11/14/19 08:02 Dose: 5,000 units Pantoprazole Sodium (Protonix Tab*) 40 mg PO DAILY [facility] Last Admin: 11/14/19 08:02 Dose: 40 mg Throat Lozenges (Chloraseptic Jean Carlos*) 1 jean carlos PO Q6H PRN PRN Reason: SORE THROAT Last Admin: 11/11/19 04:31 Dose: 1 jean carlos Vital Signs - 8 hr 11/14/19 11/14/19 11/14/19 10:21 11:15 15:15 Temperature 98.4 F 98.3 F Pulse Rate 60 69 Respiratory 20 24 Rate Blood Pressure 106/53 110/64 (mmHg) O2 Sat by Pulse 88 95 95 Oximetry Oxygen Devices in Use Now: None Eyes: No Scleral Icterus Ears/Nose/Mouth/Throat: NL Teeth, Lips, Gums Neck: NL Appearance and Movements; NL JVP Respiratory: Symmetrical Chest Expansion and Respiratory Effort, Clear to Auscultation Cardiovascular: NL Sounds; No Murmurs; No JVD Abdominal: NL Sounds; No Tenderness; No Distention Extremities: No Edema, - - bilateral edema Neurological: Alert and Oriented x 3 Result Diagrams: 11/14/19 04:16 11/14/19 04:16 Microbiology and Other Data: Microbiology 11/06/19 13:30 Aerobic Blood Culture - Preliminary Blood Venous No Growth Day 3 Anaerobic Blood Culture - Preliminary No Growth Day 3 11/06/19 13:29 Aerobic Blood Culture - Preliminary Blood Venous No Growth Day 3 Anaerobic Blood Culture - Preliminary No Growth Day 3 11/06/19 16:45 Urine Culture - Final Urine No Growth (<1,000 CFU/mL) 11/06/19 20:54 Streptococcus pneumoniae Ag Screen - Final Urine Negative S. pneumo Antigen 11/06/19 18:23 Nasal Screen MRSA (PCR) - Final Nasal Mrsa Not Detected 11/06/19 16:45 Legionella Urinary Antigen - Final Urine Negative Legionella Antigen Assess/Plan/Problems-Billing Assessment: This is a 64 year old man with MARLEEN who was admitted on 11/06 with pneumonia, influenza, septic shock, ARF, VDRF, extubated 11/08 - Patient Problems (1) Septic shock Current Visit: Yes Status: Acute Code(s): A41.9 - SEPSIS, UNSPECIFIED ORGANISM; R65.21 - SEVERE SEPSIS WITH SEPTIC SHOCK SNOMED Code(s): 38003086 Comment: resolved (2) Acute respiratory failure with hypoxia Current Visit: Yes Status: Acute Code(s): J96.01 - ACUTE RESPIRATORY FAILURE WITH HYPOXIA SNOMED Code(s): 31308200 Comment: improving still on 02 dips to 80 at night per study will check 02 ambulation tomorrow lasix 20 mg iv pleural effusions on cxr y to see if able to wean lasix again today (3) Influenza Current Visit: Yes Status: Acute Code(s): J11.1 - FLU DUE TO UNIDENTIFIED INFLUENZA VIRUS W OTH RESP MANIFEST SNOMED Code(s): 0291297 Comment: completed tamiflu (total 5 days) (4) Pneumonia Current Visit: Yes Status: Acute Code(s): J18.9 - PNEUMONIA, UNSPECIFIED ORGANISM SNOMED Code(s): 065654330 Comment: continue ceftriaxone and vanco (7 days) completed vanco.stopped d/c ceftriaxone doxy po 3 more days (5) Acute renal failure Current Visit: Yes Status: Acute Comment: resolved Status and Disposition: possible d/c in am with 02 if needed and home carel
[2019-11-14] MEDS: DOXYcycline CAP(*) 100 MG PO SCH (21:19)
[2019-11-15 06:03] LABS: ABS Eosinophils 0.2 10^3/ul (0-0.6); ABS Lymphocytes 1.6 10^3/ul (1.0-4.8); ABS Monocytes 0.8 10^3/ul (0-0.8); ABS Neutrophils 4.9 10^3/ul (1.5-7.7); Eosinophil % 2.1 %; Hematocrit 33 % (42-52); Hemoglobin 11.4 g/dL (14.0-18.0); Lymphocyte % 21.9 %; Mean Corpuscular HGB Conc 34 g/dL (31-36); Mean Corpuscular Hemoglobin 32 pg (27-31); Mean Corpuscular Volume 92 fL (80-94); Mean Platelet Volume 6.9 fL (7.4-10.4); Platelet Count 436 10^3/uL (150-450); Red Cell Distribution Width 14 % (10-15); White Blood Count 7.5 10^3/uL (3.5-10.8)
[2019-11-15 06:21] LABS: BUN/Creatinine Ratio 19.6 (8-20); Calcium 8.7 mg/dL (8.6-10.3); EGFR African American 100.5 (>60); EGFR Non-African American 83.1 (>60); Potassium 4.2 mmol/L (3.5-5.0)
[2019-11-15] MEDS ORDERED: Furosemide IV* 10 MG/ML 2 ML VIAL (20 MG) IV ONE (07:00)
[2019-11-15] MEDS: DOXYcycline CAP(*) 100 MG PO SCH (07:21)
[2019-11-15] MEDS: Heparin VIAL(*) 5000 UNITS/ML VIAL (FIVE THOUSAND) SUBCUT SCH (07:21)
[2019-11-15] MEDS: Pantoprazole TAB * 40 MG TAB PO SCH (07:21)
[2019-11-15 11:19] VITALS: BP 108/62
--- NOTE | 2019-11-15 14:08 | DS ---
DISCHARGE SUMMARY: DATE OF ADMISSION: 11/06/19 DATE OF DISCHARGE: 11/15/19 PRIMARY DIAGNOSES: 1. Acute respiratory failure with the hypoxia. 2. Septic shock. 3. Influenza. 4. Pneumonia. 5. Acute renal failure. 6. Hypomagnesemia. 7. Hypokalemia. SECONDARY DIAGNOSES: 1. Hyperlipidemia. 2. Gastroesophageal reflux disease. 3. Obstructive sleep apnea. HOSPITAL COURSE: A 64-year-old male with history of GERD, obstructive sleep apnea, hyperlipidemia, c jose into the hospital with severe laryngitis and was noted to be very short of breath. The patient h ad progressively been getting worse over the last 3 days. The patient was hypoxic and was noted to b e satting 75% on room air. The patient also had a fever of 102 and elevated lactate with 19% bands on his CBC. The patient was admitted to the ICU initially with high flow oxygen, was noted to have cristina re sepsis and pneumonia. The patient's x-ray revealed right basilar infiltrate and small pleural eff usion suggestive of pneumonia. The patient had CT of the chest which showed bilateral consolidation consistent with lobar pneumonia, worse right other than left. The patient also had a neck CT done in the ER due to his symptoms of laryngitis and stridor, which did not show any evidence of epiglottiti s. The patient had an echocardiogram done which showed ejection fraction of 55% to 60%, RV was noted to be mildly to moderately dilated, systolic function was mildly reduced. The patient was admitted to the ICU, also became hypotensive and was noted to be in septic shock and the patient had central l ine placed for pressor support. The patient's influenza test also came back positive. The patient wa s intubated for respiratory failure secondary to his pneumonia and influenza and respiratory failure. With the pressor support, IV antibiotics and ventilator management, the patient slowly was improvin g. The patient was on broad spectrum antibiotics with vancomycin, ceftriaxone, azithromycin for his pneumonia and was also on Tamiflu for influenza management. The patient was extubated on 11/08/19 an d was transitioned to nasal cannula. The patient's IV antibiotics were continued and in the post flu setting, the patient was kept on ceftriaxone and vancomycin to cover for gram-positive organisms. T he patient was also weaned off Levophed and was transferred from the ICU to the floor. The patient h as slowly continued to improve through hospital course. The patient had worsening in his renal funct ion and acute renal failure secondary to his septic shock. This is improved and the patient's kidney function has turned back to normal. The patient has so far completed treatment for his influenza. The patient has also completed 7 days of IV antibiotics with ceftriaxone and vancomycin. The patient was then switched to doxycycline and has completed 1 day. The patient will be discharged on 2 more days of p.o. doxycycline to complete a 10 day course. The patient initially failed his oxygen test a nd needed to be on oxygen till about yesterday. Through hospital course, his oxygen requirements hav e reduced and on day of discharge, the patient has been weaned off oxygen, his nocturnal oximetry als o shows improvement compared to the oximetry he had 2 days ago. Hence at this time, the patient does not need any further supplemental oxygen and is not being discharged on oxygen. The patient was note d to be hypomagnesemic during hospital course and this was replaced, also was noted to be hypokalemic , this was replaced. Overall, the patient's condition is significantly improved and the patient is s table at the time of discharge. Vitals and labs noted to be stable at the time of discharge. PHYSICAL EXAMINATION: Temperature 98.8, pulse 57, respiratory rate 16, oxygen saturation 95% on room air, blood pressure 108/62. HEENT: NCAT. Heart: S1, S2 present. Regular at the time of exam. L ungs: Clear to auscultation bilaterally. Abdomen: Soft. Extremities: No edema. Neuro: Alert and oriented. MEDICATION LIST: 1. Omeprazole 40 mg p.o. daily. 2. Diclofenac gel as needed p.r.n. 3. Magic mouthwash as needed. 4. Doxycycline 100 mg p.o. b.i.d. for 2 more days to complete his 10 day course. INSTRUCTIONS: The patient to follow up with his PCP in a week. CONDITION: Stable. DISPOSITION: Home. TIME SPENT: Total time spent on discharge is equal to 50 minutes. [id number]/[facility] #: [id number]
== END 2019-11-15 15:38 | disposition home or self-care (01) | DRG 871 ==
LOC: ED 12:49 → ICU 14:33 → MEDTELE 11-08 14:07
PROVIDERS: ADMIT Internal Medicine; ATTEND Internal Medicine
PROC: 02HV33Z Insertion of Infusion Device into Superior Vena Cava, Percutaneous Approach (ICD-10-PCS; principal; 2019-11-07)
PROC: 3E043XZ Introduction of Vasopressor into Central Vein, Percutaneous Approach (ICD-10-PCS; 2019-11-07)
PROC: 0BH17EZ Insertion of Endotracheal Airway into Trachea, Via Natural or Artificial Opening (ICD-10-PCS; 2019-11-07)
PROC: 5A1935Z Respiratory Ventilation, Less than 24 Consecutive Hours (ICD-10-PCS; 2019-11-07)
DX: A41.89 Other specified sepsis (principal); R65.21 Severe sepsis with septic shock; J96.01 Acute respiratory failure with hypoxia; J10.08 Influenza due to other identified influenza virus with other specified pneumonia; N17.9 Acute kidney failure, unspecified; E87.2 Acidosis; J90 Pleural effusion, not elsewhere classified; G47.33 Obstructive sleep apnea (adult) (pediatric); E78.5 Hyperlipidemia, unspecified; K21.9 Gastro-esophageal reflux disease without esophagitis; E86.0 Dehydration; J04.0 Acute laryngitis; E83.42 Hypomagnesemia; E87.6 Hypokalemia; Z88.8 Allergy status to other drugs, medicaments and biological substances; Z91.030 Bee allergy status
CPT/HCPCS: 36415; 36600; 70491; 71045; 71046; 71260; 80048; 80053; 80202; 81003; 81015; 82565; 82803; 83605; 83735; 83880; 84100; 84520; 85025; 85610; 85730; 87040; 87086; 87641; 87651; 87899; 93005; 93306; 94003; 94640; 94667; 94762; 96374; 97112; 99285; A9270-GY; J0456; J0696; J1644; J1940; J2704; J3010; J3370; J3475; J3480; Q9967